=== PATIENT | male | born 1970 | race Caucasian/White ===

== ENCOUNTER → 2016-11-06 | Outpatient (REF) | payer OTHER | LOC: M SFHCPLAZ 15:12 | PROVIDERS: ATTEND Family Medicine | DX: Z11.59 Encounter for screening for other viral diseases (principal); Z11.4 Encounter for screening for human immunodeficiency virus [HIV] ==

== ENCOUNTER → 2016-12-26 | Outpatient (REF) | payer OTHER | LOC: M SFHCPLAZ 11:55 | PROVIDERS: ATTEND Family Medicine | DX: I99.8 Other disorder of circulatory system (principal) ==

== ENCOUNTER → 2017-01-18 | Outpatient (CLI) | payer OTHER ==
--- NOTE | 2017-01-18 18:59 | ECHO ---
DATE OF PROCEDURE: 01/18/2017 AGE: 46 GENDER: Male HEIGHT: 72 inches. WEIGHT: 155 pounds. BODY SURFACE AREA: 1.91 sq m. OUTPATIENT: REFERRING PHYSICIAN: Luke Mart INDICATION: Disorder of circulatory system. MEASUREMENTS: 2D MEASUREMENTS: RV - 4.2 cm LV- 4.8 cm Septum - 1.0 cm Posterior wall - 1.0 cm Aortic root - 3.9 cm LA - 4.2 cm LVEF - 65% DOPPLER MEASUREMENTS: AV - 1.0 m/s LVOT - 0.8 m/s LVOT diameter - 2.4 cm MV-E: 53 A: 47 EA ratio 1.1 Early mitral deceleration time 225 ms E-prime - 7 A-prime - 12 E/E prime ratio 7.6 PV - 0.8 m/s Pulmonary artery acceleration time 116 ms RVSP- 32 mmHg IVC - 1.6 cm COMMENTS: Normal sinus rhythm without intraventricular conduction disturbance. Borderline left atrial enlargement but normal left ventricular size. Borderline right heart chamber enlargement. Left ventricle (LV) wall thickness was normal. On real-time imaging from the parasternal and apical projections wall motion was symmetrical and normal to hyperkinetic. Normal-appearing mitral valvular apparatus and leaflet excursion with no posterior systolic buckling. Three equal size aortic cusps of normal thickness and cusp separation. Aortic root size appeared to be at least borderline increased. His ascending aorta and aortic arch and proximal descending aorta did not appear to be dilated. No apparent intracardiac mass. Minuscule posterior echo-free space. Color flow Doppler study taken from the parasternal and apical projection showed very mild tricuspid but no mitral or aortic insufficiency. Guided continuous wave Doppler of his aortic valve showed a normal peak systolic velocity against LV outflow tract obstruction. Pulsed and continuous wave Doppler of his LV inflow tract taken from the apical four-chamber projection showed normal diastolic filling velocities against mitral stenosis. The filling pattern was also normal. However, his early mitral deceleration time was somewhat prolonged and tissue Doppler of his mitral annulus also suggested a degree of LV diastolic dysfunction but current estimated mean left atrial pressure was normal. Pulsed continuous wave Doppler of his pulmonary trunk showed a normal peak systolic velocity against right ventricle (RV) outflow tract obstruction. His pulmonary artery acceleration time was normal against an elevated pulmonary vascular resistance. Guided continuous wave Doppler of his tricuspid valve allowed our estimation of his right ventricular systolic pressure (upper limits of normal to borderline increased). Normal IVC size and collapse against an elevated central venous pressure. CONCLUSION: Normal left ventricular size, wall thickness and wall motion. Borderline left atrial enlargement with Doppler evidence of a degree of impaired LV diastolic function but currently normal estimated mean left atrial pressure. Mildly dilated right heart chambers with normal contraction and only mild current pulmonary hypertension. Normal IVC size and collapse against an elevated central venous pressure. Borderline dilated aortic root with normal appearing aortic valve and function.
== END ==
LOC: M CARPUL 14:52
PROVIDERS: ATTEND Surgery
DX: I99.8 Other disorder of circulatory system (principal)

== ENCOUNTER → 2017-05-27 | Outpatient (REF) ==
--- NOTE | 2017-05-27 15:45 | REP ---
PARTIAL LUMBAR SPINE, THREE VIEWS: HISTORY: Degenerative disc disease. COMPARISON: 07/24/2012 There is no acute fracture or subluxation. The L1-2 and L3-4 through L5-S1 intervertebral discs are decreased in height. Vacuum phenomenon is present at the L4-5 and L5-S1 levels. These findings are consistent with disc degeneration. Osteophytes are present on L2-5. IMPRESSION: Degenerative change as described above. Signed by Brennen Amador MD 05/27/2017 03:55 P
--- NOTE | 2017-05-27 15:49 | REP ---
RIGHT KNEE, FIVE VIEWS: HISTORY: Degenerative joint disease. There is no acute fracture or dislocation. The joint spaces are normal in appearance. An ossified density is present in the distal femur likely representing a bone infarction. IMPRESSION: There is no acute fracture or dislocation. Signed by Brennen Amador MD 05/27/2017 03:55 P
== END ==
LOC: M SMT 14:46
PROVIDERS: ATTEND Internal Medicine
DX: Z02.9 Encounter for administrative examinations, unspecified (principal)

== ENCOUNTER → 2017-06-10 | Outpatient (REF) | payer OTHER | LOC: M SFHCPLAZ 12:39 | PROVIDERS: ATTEND Pediatrics | DX: L98.9 Disorder of the skin and subcutaneous tissue, unspecified (principal) ==

== ENCOUNTER → 2018-04-20 | Outpatient (REF) | payer OTHER | LOC: M SFHCPLAZ 15:19 | DX: I70.209 Unspecified atherosclerosis of native arteries of extremities, unspecified extremity (principal) ==

== ENCOUNTER → 2019-01-30 | Outpatient (CLI) | payer OTHER ==
[~2019-01-30] MED LIST: CLOP75TA2; ERYTOIN8 OS; LOSA50TA88; VENTAER
--- NOTE | 2019-01-30 10:43 | REP ---
Lumbar spine seven views: Comparison is 07/24/2012. The current study includes flexion and extension views in the lateral projection. There is mild scoliosis convex left, as an interval change, possibly positional. Vertebral body heights and alignment are normal and unchanged. There is degenerative disc disease at L4-5 and L5 S1, unchanged. There is no spondylolysis or spondylolisthesis. There is no listhesis on the lateral views in flexion or extension. The pedicles, facet articulations and sacroiliac articulations are unremarkable. Impression: L4-5 and L5 S1 degenerative disc disease. This is unchanged. Mild scoliosis convex left. Otherwise, negative lumbar spine. Electronically Signed by Balta Virgen MD 01/30/2019 10:34 A
== END ==
LOC: M RAD 08:27
PROVIDERS: ATTEND Student in an Organized Health Care Education/Training Program
DX: M54.40 Lumbago with sciatica, unspecified side (principal)

== ENCOUNTER → 2019-05-25 | Outpatient (REF) | payer OTHER ==
[2019-05-25 16:50] LABS: HEMATOCRIT 43.8 % (42.0-52.0); HEMOGLOBIN 14.8 g/dl (13.5-17.5); MEAN CORPUSCULAR HEMOGLOBIN 33.2 pg (27.0-33.0); MEAN CORPUSCULAR HGB CONC 33.8 g/dl (32.0-36.5); MEAN CORPUSCULAR VOLUME 98.2 fl (80.0-96.0); PLATELET COUNT, AUTOMATED 247 10^3/uL (150-450); RED BLOOD COUNT 4.46 10^6/uL (4.30-6.10); WHITE BLOOD COUNT 6.8 10^3/uL (4.0-10.0)
[2019-05-25 16:56] LABS: ALBUMIN 4.2 GM/DL (3.2-5.2); ALT/SGPT 68 U/L (12-78); BILIRUBIN,TOTAL 0.3 MG/DL (0.2-1.0); BLOOD UREA NITROGEN 6 MG/DL (7-18); CALCIUM LEVEL 9.3 MG/DL (8.5-10.1); CARBON DIOXIDE LEVEL 27 MEQ/L (21-32); CHLORIDE LEVEL 110 MEQ/L (98-107); CREATININE FOR GFR 0.83 MG/DL (0.70-1.30); GLOMERULAR FILTRATION RATE > 60.0 (>56); GLUCOSE, FASTING 109 MG/DL (70-100); MAGNESIUM LEVEL 2.5 MG/DL (1.8-2.4); SODIUM LEVEL 143 MEQ/L (136-145); TOTAL PROTEIN 7.3 GM/DL (6.4-8.2)
== END ==
LOC: M SFHCPLAZ 13:45
PROVIDERS: ATTEND Family Medicine
DX: R25.2 Cramp and spasm (principal)

== ENCOUNTER 2019-12-18 09:42 | Emergency (ER) | payer OTHER ==
[~2019-12-18] VITALS: Ht 180.3 cm; Wt 68.2 kg
[2019-12-18 09:43] VITALS: BP 140/88
[2019-12-18] MEDS ORDERED: CETI5TAB2 PO (09:50)
[2019-12-18 11:19] LABS: HEMATOCRIT 44.7 % (42.0-52.0); HEMOGLOBIN 15.2 g/dl (13.5-17.5); MEAN CORPUSCULAR HEMOGLOBIN 33.3 pg (27.0-33.0); MEAN CORPUSCULAR VOLUME 97.8 fl (80.0-96.0); PLATELET COUNT, AUTOMATED 260 10^3/uL (150-450); RED BLOOD COUNT 4.57 10^6/uL (4.30-6.10); WHITE BLOOD COUNT 7.5 10^3/uL (4.0-10.0)
== END 2019-12-18 11:29 | disposition left against medical advice (07) ==
LOC: M ED 09:42
DX: M54.12 Radiculopathy, cervical region (principal); F17.200 Nicotine dependence, unspecified, uncomplicated; J45.909 Unspecified asthma, uncomplicated; Z79.899 Other long term (current) drug therapy; Z79.02 Long term (current) use of antithrombotics/antiplatelets

== ENCOUNTER → 2019-12-25 | Outpatient (CLI) | payer OTHER ==
[~2019-12-25] MED LIST changes: +CETI5TAB2 PO; +CYCL5TAB PO; +NEUR300C PO; +PERC5TAB12 PO
--- NOTE | 2019-12-25 10:29 | REPPI ---
CERVICAL SPINE SERIES: Full cervical spine series performed including flexion, extension and oblique views. There is no compression fracture. There is fusion of C2 and C3 vertebral bodies. In the neutral position, there is mild retrolisthesis of C3 on C4 approximately 3 mm. There is also retrolisthesis of C5 on C6 about 4 mm. With flexion, the alignment is not changed although there is reduction of the retrolisthesis of C5 on C6 to about 3 mm. With extension, the retrolisthesis of C3 on C4 increases to 5 mm, there is mild retrolisthesis of C4 on C5 approximately 2 mm, and there is retrolisthesis of C5 on C6 4 mm. There is mild diffuse spurring. There is moderate disc space narrowing and subchondral sclerosis at C3-4. There is moderate narrowing and subchondral sclerosis at C5-6 and C6-7. There is diffuse sclerosis and spurring at the posterior facet joints. Oblique views show possible mild foraminal narrowing at C5-6 on the left and C6-7 on the right. IMPRESSION: Degenerative changes as discussed in detail above. Electronically Signed by Balta Jones MD 12/29/2019 06:23 P
== END ==
LOC: M PLAIMG 09:14
PROVIDERS: ATTEND Student in an Organized Health Care Education/Training Program
DX: M54.12 Radiculopathy, cervical region (principal); M50.31 Other cervical disc degeneration, high cervical region; M50.321 Other cervical disc degeneration at C4-C5 level; M50.322 Other cervical disc degeneration at C5-C6 level; M50.323 Other cervical disc degeneration at C6-C7 level

== ENCOUNTER 2019-12-31 15:49 | Emergency (ER) | payer OTHER ==
[~2019-12-31] VITALS: Ht 180.3 cm; Wt 69.6 kg
[~2019-12-31 15:49] MED LIST changes: -CYCL5TAB PO; -NEUR300C PO; -PERC5TAB12 PO
[2019-12-31] MEDS ORDERED: CYCL5TAB PO (17:29)
[2019-12-31] MEDS ORDERED: NEUR300C PO (17:29)
[2019-12-31] MEDS ORDERED: CYCLOBENZAPRINE 5MG TABLET PO ONE (17:30)
[2019-12-31] MEDS ORDERED: GABAPENTIN 300 MG CAP PO ONE (17:30)
[2019-12-31 17:37] VITALS: BP 121/69
--- NOTE | 2019-12-31 17:41 | REP ---
SHOULDER: REASON FOR EXAM: Pain and tingling. No history of trauma. No priors. FINDINGS: Three views of the shoulder were performed. The acromioclavicular and glenohumeral relationships are within normal limits. There is no acute fracture or destructive osseous lesion. There is a small cyst in the humeral head seen incidentally and unchanged from the imaged portion of the right shoulder obtained during a chest radiograph of 03/19/2012. It was also seen on chest CT of 01/16/2017. Electronically Signed by Trino Watters DO 12/31/2019 06:46 P
== END 2019-12-31 17:38 | disposition home or self-care (01) ==
LOC: M ED 15:49
DX: M54.12 Radiculopathy, cervical region (principal); F17.200 Nicotine dependence, unspecified, uncomplicated; Z79.51 Long term (current) use of inhaled steroids; Z79.899 Other long term (current) drug therapy

== ENCOUNTER 2020-01-04 11:36 | Emergency (ER) | payer OTHER ==
[~2020-01-04] VITALS: Ht 180.3 cm; Wt 68.2 kg
[~2020-01-04 11:36] MED LIST changes: +CYCL5TAB PO; +NEUR300C PO
[2020-01-04] MEDS ORDERED: ACETAMINOPHEN 500 MG TAB PO ONE (13:00)
[2020-01-04] MEDS ORDERED: ISOVUE-370 76% 100ML VIAL As Ordered ONE (13:17)
[2020-01-04 13:32] LABS: BASO # 0.1 10^3/uL (0.0-0.2); EOS # 0.2 10^3/uL (0.0-0.5); EOS % 2.5 % (0.0-3.0); HEMATOCRIT 41.7 % (42.0-52.0); HEMOGLOBIN 14.4 g/dl (13.5-17.5); LYMPH # 1.5 10^3/uL (1.5-5.0); LYMPH % 20.4 % (24.0-44.0); MEAN CORPUSCULAR HEMOGLOBIN 33.7 pg (27.0-33.0); MEAN CORPUSCULAR HGB CONC 34.5 g/dl (32.0-36.5); MEAN CORPUSCULAR VOLUME 97.7 fl (80.0-96.0); MONO # 0.6 10^3/uL (0.0-0.8); MONO % 8.8 % (0.0-5.0); NEUTROPHILS # 4.9 10^3/uL (1.5-8.5); PLATELET COUNT, AUTOMATED 226 10^3/uL (150-450); RED BLOOD COUNT 4.27 10^6/uL (4.30-6.10); WHITE BLOOD COUNT 7.3 10^3/uL (4.0-10.0)
[2020-01-04] MEDS ORDERED: PERC5TAB12 PO (15:09)
[2020-01-04 15:22] VITALS: BP 134/88
--- NOTE | 2020-01-04 16:14 | REP ---
REASON: Trauma. PRIORS: None. CONTRAST: 100 mL Isovue 370. For the description of the lung bases, please see the CT chest report. The liver, gallbladder, spleen, pancreas, adrenal glands, and kidneys are within normal limits. The abdominal aort and para-aortic regions are within normal limits. No free fluid or free air is seen in the abdomen or pelvis. The intra-abdominal and intrapelvic bowel loops and their mesenteries are within normal limits. There is no evidence of intra-abdominal or intrapelvic mass or adenopathy. Bone window technique through the examination shows a fracture involving the left 10th rib posteriorly. IMPRESSION: 1. Left 10th rib fracture. 2. No evidence of acute intra-abdominal or intrapelvic disease. Electronically Signed by Trino Watters DO 01/04/2020 04:39 P
--- NOTE | 2020-01-04 16:16 | REP ---
CT BRAIN WITHOUT IV CONTRAST: CT brain performed without IV contrast. There is mild atrophy. There is no midline shift or mass effect. Incidental note is made of a cavum septum pellucidum and cavum vergae. There is no acute intracranial hemorrhage. There is no extra-axial fluid collection. There is no evidence of a skull fracture. IMPRESSION: No evidence of acute intracranial hemorrhage or skull fracture. Electronically Signed by Balta Jones MD 01/04/2020 07:43 P
--- NOTE | 2020-01-04 16:26 | REP ---
REASON: Trauma. CONTRAST: 100 mL Isovue 370. Prior examination 02/06/2016. There is no mediastinal or hilar adenopathy. There are no pleural or pericardial effusions. Bone window technique through the examination shows a fracture of the left 10th rib posteriorly. Evaluation of the lung garcia shows a single lingular curvilinear density. IMPRESSION: Likely lingular subsegmental atelectatic change versus fibrosis. It has developed since the last CT of the chest. There are no other lung field abnormalities. There is a fracture of the left 10th rib. Electronically Signed by Trino Watters DO 01/04/2020 04:39 P
== END 2020-01-04 15:33 | disposition home or self-care (01) ==
LOC: M ED 11:36
DX: S22.32XA Fracture of one rib, left side, initial encounter for closed fracture (principal); W17.89XA Other fall from one level to another, initial encounter; W22.09XA Striking against other stationary object, initial encounter; Y92.018 Other place in single-family (private) house as the place of occurrence of the external cause; Y93.9 Activity, unspecified; F17.200 Nicotine dependence, unspecified, uncomplicated; F41.9 Anxiety disorder, unspecified; Z79.51 Long term (current) use of inhaled steroids; Z79.899 Other long term (current) drug therapy
CPT/HCPCS: 70450; 71260; 74177; 80047; 81001; 85025; 99284; Q9967

== ENCOUNTER → 2020-03-10 | Outpatient (CLI) | payer OTHER ==
[~2020-03-10] MED LIST changes: +PERC5TAB12 PO
== END ==
LOC: M LABSMTC 12:55
PROVIDERS: ATTEND Orthopaedic Surgery
DX: Z20.828 Contact with and (suspected) exposure to other viral communicable diseases (principal)
CPT/HCPCS: C9803; U0003

== ENCOUNTER → 2020-05-09 | Outpatient (CLI) | payer OTHER ==
--- NOTE | 2020-05-09 15:16 | REPPI ---
INDICATION: NEUROPATHIC PAIN. COMPARISON: January 30, 2019.. TECHNIQUE: Five routine views of the lumbar spine. FINDINGS: There is a minimal levoconvex curve in the lumbar spine unchanged. Lumbar vertebral body heights are preserved. There is slight straightening on the lateral radiograph also unchanged. There is degenerative narrowing with discogenic spurring anteriorly at L4-5 and L3-4 and to a lesser extent at L2-3 L1-2 and L5-S1. These degenerative disc changes are stable allowing for slight differences in technique when compared with the prior study. Discogenic spurring is also noted at T11-12 unchanged. There is no evidence of spondylolysis or spondylolisthesis. Pedicles and posterior elements appear intact. Psoas margins are symmetric. Sacrum and SI joints are unremarkable. IMPRESSION: Diffuse degenerative disc disease most pronounced at L4-5 and L3-4 unchanged from comparison study. No acute abnormality. <Electronically signed by Ray Christiansen > 05/09/20 [id number]
== END ==
LOC: M PLAIMG 11:10
PROVIDERS: ATTEND Student in an Organized Health Care Education/Training Program
DX: M51.36 Other intervertebral disc degeneration, lumbar region (principal)

== ENCOUNTER → 2020-05-09 | Outpatient (REF) | payer OTHER ==
[2020-05-09 14:29] LABS: ALBUMIN 4.4 GM/DL (3.2-5.2); ALT/SGPT 79 U/L (12-78); BILIRUBIN,TOTAL 0.5 MG/DL (0.2-1.0); BLOOD UREA NITROGEN 9 MG/DL (7-18); CALCIUM LEVEL 9.4 MG/DL (8.5-10.1); CARBON DIOXIDE LEVEL 25 MEQ/L (21-32); CHLORIDE LEVEL 104 MEQ/L (98-107); CREATININE FOR GFR 0.78 MG/DL (0.70-1.30); GLOMERULAR FILTRATION RATE > 60.0 (>56); GLUCOSE, FASTING 105 MG/DL (70-100); MAGNESIUM LEVEL 2.1 MG/DL (1.8-2.4); POTASSIUM SERUM 4.1 MEQ/L (3.5-5.1); SODIUM LEVEL 139 MEQ/L (136-145); TOTAL PROTEIN 7.1 GM/DL (6.4-8.2)
[2020-05-09 14:35] LABS: VITAMIN B12 LEVEL 490 PG/ML
[2020-05-09 14:36] LABS: FOLATE 4.2 NG/ML
== END ==
LOC: M SFHCPLAZ 10:50
PROVIDERS: ATTEND Internal Medicine
DX: G57.93 Unspecified mononeuropathy of bilateral lower limbs (principal)

== ENCOUNTER 2020-07-22 11:51 | Inpatient (IN) | payer OTHER ==
[~2020-07-22] VITALS: Ht 180.3 cm; Wt 65.1 kg
[~2020-07-22 11:51] MED LIST changes: -CLOP75TA2; +CLOP75TA2 PO; -VENTAER; +VENTAER INH
[2020-07-22] MEDS ORDERED: GABA-843 PO (12:04)
[2020-07-22 12:25] LABS: BASO # 0.1 10^3/uL (0.0-0.2); BASO % 0.6 % (0.0-1.0); EOS % 0.3 % (0.0-3.0); HEMATOCRIT 39.2 % (42.0-52.0); HEMOGLOBIN 13.1 g/dl (13.5-17.5); LYMPH # 0.9 10^3/uL (1.5-5.0); LYMPH % 8.8 % (24.0-44.0); MEAN CORPUSCULAR HEMOGLOBIN 32.2 pg (27.0-33.0); MEAN CORPUSCULAR HGB CONC 33.4 g/dl (32.0-36.5); MEAN CORPUSCULAR VOLUME 96.3 fl (80.0-96.0); MONO # 1.7 10^3/uL (0.0-0.8); MONO % 16.1 % (0.0-5.0); NEUTROPHILS # 7.9 10^3/uL (1.5-8.5); NEUTROPHILS % 73.5 % (36.0-66.0); PLATELET COUNT, AUTOMATED 365 10^3/uL (150-450); RED BLOOD COUNT 4.07 10^6/uL (4.30-6.10); WHITE BLOOD COUNT 10.7 10^3/uL (4.0-10.0)
[2020-07-22] MEDS ORDERED: NS 1,000 ML IV ONE (12:30)
[2020-07-22] MEDS ORDERED: METOCLOPRAMIDE INJ 10MG/2ML VIAL (J2765 PER 1) IV ONE (12:30)
--- NOTE | 2020-07-22 12:43 | REP ---
INDICATION: ? constipation COMPARISON: None. TECHNIQUE: Supine view of the abdomen and pelvis. FINDINGS: Bowel gas pattern is nonspecific and without obstruction or perforation. No significant fecal stasis. No organomegaly. No abnormal calcifications. Incidental phleboliths noted in the pelvis. Skeletal structures intact. IMPRESSION: Normal abdominal radiograph. <Electronically signed by Hakeem Chun > 07/22/20 [id number]
[2020-07-22 13:02] LABS: ALBUMIN 3.7 GM/DL (3.2-5.2); ALT/SGPT 76 U/L (12-78); BILIRUBIN,DIRECT 0.1 MG/DL (0.0-0.2); BILIRUBIN,TOTAL 0.5 MG/DL (0.2-1.0); BLOOD UREA NITROGEN 7 MG/DL (7-18); CALCIUM LEVEL 9.5 MG/DL (8.5-10.1); CARBON DIOXIDE LEVEL 27 MEQ/L (21-32); CHLORIDE LEVEL 97 MEQ/L (98-107); CREATININE FOR GFR 0.77 MG/DL (0.70-1.30); GLOMERULAR FILTRATION RATE > 60.0 (>56); GLUCOSE, FASTING 118 MG/DL (70-100); LIPASE 104 U/L (73-393); POTASSIUM SERUM 3.5 MEQ/L (3.5-5.1); SODIUM LEVEL 133 MEQ/L (136-145); TOTAL PROTEIN 6.9 GM/DL (6.4-8.2)
[2020-07-22] MEDS ORDERED: ISOVUE-370 76% 100ML VIAL As Ordered ONE (13:09)
--- NOTE | 2020-07-22 13:31 | REP ---
INDICATION: mod rlq pain into LLQ, concern for appy or diverticulitis. COMPARISON: None TECHNIQUE: Axial contrast-enhanced images from the lung bases to the pubic symphysis using 100 cc Isovue 370 intravenous contrast material. . This CT examination was performed using the following dose reduction techniques: Automated exposure control, adjustment of mA and/or kv according to the patient's size, and the use of iterative reconstruction technique. FINDINGS: There is a 6.2 x 6.1 x 4.0 cm extraluminal collection in the mid pelvis with surrounding inflammatory stranding and air-fluid level as well as small adjacent foci of gas (series 201 images 90-110). The collection is adjacent to the mid sigmoid colon which demonstrates multiple diverticula and mild mucosal thickening and this likely represents diverticular abscess with contained perforation. There is no evidence for bowel obstruction and no further significant pneumoperitoneum to suggest lourdes bowel perforation. Normal terminal ileum, cecum and appendix are identified in the right lower quadrant. Liver, spleen, pancreas, gallbladder, bilateral adrenal glands and kidneys are normal. Further evaluation of the pelvis demonstrates collapsed relatively normal bladder and mildly prominent prostate/seminal vesicles. No significant free fluid/ascites. No significant intraperitoneal or retroperitoneal adenopathy. Abdominal aorta and vasculature without aneurysm or dissection. Musculoskeletal structures demonstrate age-related changes. IMPRESSION: 1. Suspected diverticular abscess adjacent to the sigmoid colon with air-fluid level and smaller foci of peripheral gas. No associated bowel obstruction or further pneumoperitoneum to suggest lourdes perforation. <Electronically signed by Hakeem Chun > 07/22/20 [id number]
[2020-07-22] MEDS ORDERED: CIPROFLOXACIN 400 MG in IV 1 EA IV ONE (14:15)
[2020-07-22] MEDS ORDERED: HYDROMORPHONE HCL 0.5 MG/ 0.5 ML SYRINGE (J1170 PER 1) IV ONE (14:15)
[2020-07-22] MEDS ORDERED: metroNIDAZOLE 500 MG in IV 1 EA IV ONE (14:15)
[2020-07-22] MEDS ORDERED: LIDOCAINE 1% MDV 20ML VIAL As Ordered ONE (15:10)
--- NOTE | 2020-07-22 17:02 | REP ---
INDICATION: diverticular abscess. COMPARISON: None. TECHNIQUE: The procedure was performed under the direct supervision of Dr. Jones. The patient has a history of a 6.2 x 6.1 x 4.0 cm extraluminal collection in the mid pelvis seen on a previous CT scan performed earlier today. The risks and benefits of the procedure were explained to the patient and informed consent was obtained. The abscess was localized using ultrasound guidance. The skin was prepped and draped in a sterile fashion. 1% lidocaine was used as a local anesthetic. Using CT guidance an 8 [place] Skater APDL catheter was inserted using trocar technique. 40 cc of beige, proteinaceous fluid was withdrawn and sent to the lab for analysis. The abscess cavity was flushed with 4 10 cc aliquots of sterile saline. The Catheter was affixed to the skin and a sterile dressing was applied. The catheter was connected to a gravity drainage bag. The patient tolerated the procedure well and there were no immediate complications. FINDINGS: None IMPRESSION: CT-guided pelvic abscess drain yielding 40 cc of beige, proteinaceous fluid. <Electronically signed by Abhishek Pickens > 07/22/20 [id number] <Electronically signed by Balta Jones > 07/22/20 [id number]
--- NOTE | 2020-07-22 17:37 | HPEPDOC ---
[facility] Medical History & Physical Date of Admission Jul 22, 2020 Date of Service: Jul 22, 2020 Attending Physician: DAVON CHAPARRO MD History and Physical CHIEF COMPLAINT: Abdominal pain HISTORY OF PRESENT ILLNESS: 49 y.o male w/ PHM of COPD & ?Raynaud's presents with abdominal pain over the past 4 days. Pain was jani-umbilical and radiating in the lower abdomen. He denies any associated symptoms; denies N/V/D or fever. CT in the ED shows diverticular abscess, s/p IR drain placement. He was seen post-procedure and reports improvement in symptoms already and he wishes to go home. 10 point ROS is negative except for above. PAST MEDICAL HISTORY: 1. COPD PAST SURGICAL HISTORY: 1. None SOCIAL HISTORY: Current smoker, 1 pack per day. Social alcohol use. Denies drug use FAMILY HISTORY: Negative for malignancy or heart disease ALLERGIES: Please see below. HOME MEDICATIONS: Please see below. PHYSICAL EXAMINATION: VITAL SIGNS: Please see below. GENERAL: No distress HEENT: Normocephalic, atraumatic, moist mucous membranes NECK: Supple CARDIOVASCULAR EXAMINATION: S1, S2, no murmurs RESPIRATORY EXAMINATION: Clear to auscultation, no wheezing ABDOMINAL EXAMINATION: Soft, mild tenderness, abdominal drain with serosanguineous drainage EXTREMITIES: Range of motion intact SKIN: No rash NEUROLOGICAL EXAMINATION: Alert and oriented 3, no focal deficits PSYCHIATRIC EXAMINATION: Calm and cooperative LABORATORY DATA: See below. IMAGING: CT abdomen and pelvis showing diverticular abscess adjacent to the sigmoid colon. MICROBIOLOGY: Please see below. ASSESSMENT: 49-year-old male with past medical history of COPD is admitted for diverticular abscess. PLAN: 1. Diverticular abscess. Status post drain placement by IR today, cultures pending. Cipro/Flagyl, nothing by mouth, IV fluids. Gen. surgery eval pending 2. COPD DuoNeb's when necessary Active smoker, nicotine patch. DVT prophylaxis: Lovenox. GI prophylaxis: Not needed Vital Signs Vital Signs Date Time Temp Pulse Resp B/P (MAP) Pulse Ox O2 Delivery O2 Flow Rate FiO2 07/22/20 15:18 18 07/22/20 14:23 99.1 98 144/95 (111) 99 Room Air Laboratory Data Labs 24H Laboratory Tests 2 07/22/20 12:00: Immature Granulocyte % (Auto) 0.7, Neutrophils (%) (Auto) 73.5H, Lymphocytes (%) (Auto) 8.8L, Monocytes (%) (Auto) 16.1H, Eosinophils (%) (Auto) 0.3, Basophils (%) (Auto) 0.6, Neutrophils # (Auto) 7.9, Lymphocytes # (Auto) 0.9L, Monocytes # (Auto) 1.7H, Eosinophils # (Auto) 0.0, Basophils # (Auto) 0.1, Nucleated Red Blood Cells % (auto) 0.0, Anion Gap 9, Glomerular Filtration Rate > 60.0, Calcium Level 9.5, Total Bilirubin 0.5, Direct Bilirubin 0.1, Aspartate Amino Transf (AST/SGOT) 35, Alanine Aminotransferase (ALT/SGPT) 76, Alkaline Phosphatase 102, Total Protein 6.9, Albumin 3.7, Albumin/Globulin Ratio 1.2, Lipase 104 07/22/20 14:00: Urine Color YELLOW, Urine Appearance CLEAR, Urine pH 5.0, Urine Specific [place] >1.060H, Urine Protein NEGATIVE, Urine Glucose (UA) 1+H, Urine Ketones NEGATIVE, Urine Blood NEGATIVE, Urine Nitrite NEGATIVE, Urine Bilirubin NEGATIVE, Urine Urobilinogen 0.2, Urine Leukocyte Esterase NEGATIVE, Urine WBC (Auto) 1, Urine RBC (Auto) 1, Urine Hyaline Casts (Auto) 0, Urine Bacteria (Auto) NEGATIVE, Urine Squamous Epithelial Cells 0, Urine Sperm (Auto) 07/22/20 15:08: Coronavirus (COVID-19)(PCR) NEGATIVE CBC/BMP Laboratory Tests 07/22/20 12:00 Microbiology Microbiology 07/22/20 Anaerobic Culture, Received Pending 07/22/20 Gram Stain, Received Pending 07/22/20 Abscess Culture, Received Pending Home Medications Scheduled Clopidogrel Bisulfate (Clopidogrel) 75 Mg Tab, 75 MG PO DAILY Gabapentin (Gabapentin) 300 Mg Capsule, 300 MG PO BID Scheduled PRN Albuterol Sulfate (Ventolin Hfa) 108 Mcg/Act Aer, 2 PUFFS INH Q6H PRN for SOB/WHEEZING Allergies Coded Allergies: No Known Allergies (Unverified , 09/26/18) A-FIB/CHADSVASC A-FIB History Current/History of A-Fib/PAF?: No DAVON CHAPARRO MD Jul 22, 2020 16:57
[2020-07-22] MEDS ORDERED: IPRATROPIUM 0.5MG/ALBUTEROL 2.5MG INH SOL UD 3ML (DUONEB) NEB PRN (18:00)
[2020-07-22] MEDS: NS 1,000 ML IV SCH (18:15)
[2020-07-22] MEDS: ACETAMINOPHEN 500 MG TAB PO PRN (19:11)
[2020-07-22] MEDS: GABAPENTIN 300 MG CAP PO SCH (21:09)
[2020-07-22 22:35] VITALS: BP 126/85
[2020-07-23] MEDS: metroNIDAZOLE 500 MG in IV 1 EA IV SCH ×2 (03:47→12:43)
[2020-07-23] MEDS: NS 1,000 ML IV SCH ×2 (03:48→08:48)
[2020-07-23 06:00] VITALS: BP 129/85
[2020-07-23] MEDS ORDERED: CIPROFLOXACIN 400 MG in IV 1 EA IV SCH (06:00)
[2020-07-23 07:36] LABS: HEMATOCRIT 34.4 % (42.0-52.0); MEAN CORPUSCULAR HEMOGLOBIN 31.4 pg (27.0-33.0); MEAN CORPUSCULAR VOLUME 98.3 fl (80.0-96.0); PLATELET COUNT, AUTOMATED 327 10^3/uL (150-450); WHITE BLOOD COUNT 5.5 10^3/uL (4.0-10.0)
[2020-07-23 08:10] LABS: ALBUMIN 2.7 GM/DL (3.2-5.2); ALT/SGPT 48 U/L (12-78); BILIRUBIN,TOTAL 0.5 MG/DL (0.2-1.0); BLOOD UREA NITROGEN 6 MG/DL (7-18); CARBON DIOXIDE LEVEL 28 MEQ/L (21-32); CHLORIDE LEVEL 103 MEQ/L (98-107); CREATININE FOR GFR 0.68 MG/DL (0.70-1.30); GLOMERULAR FILTRATION RATE > 60.0 (>56); GLUCOSE, FASTING 97 MG/DL (70-100); MAGNESIUM LEVEL 1.9 MG/DL (1.8-2.4); POTASSIUM SERUM 3.5 MEQ/L (3.5-5.1); SODIUM LEVEL 137 MEQ/L (136-145); TOTAL PROTEIN 5.4 GM/DL (6.4-8.2)
[2020-07-23] MEDS ORDERED: ENOXAPARIN 40MG/0.4ML SYRINGE (J1650 PER 10MG) SC SCH (09:00)
[2020-07-23] MEDS ORDERED: CLOPIDOGREL 75 MG TAB PO SCH (09:00)
[2020-07-23] MEDS ORDERED: NICOTINE 21MG/24HR 1 EA TRANSDERMAL TD SCH (09:00)
[2020-07-23] MEDS: GABAPENTIN 300 MG CAP PO SCH (09:13)
[2020-07-23] MEDS: ACETAMINOPHEN 500 MG TAB PO PRN (09:15)
[2020-07-23] MEDS ORDERED: POTASSIUM CHLORIDE 10 MEQ SR TABLET PO ONE (09:45)
[2020-07-23] MEDS ORDERED: CIPR500T3 PO (12:19)
[2020-07-23] MEDS ORDERED: FLAG500T PO (12:19)
--- NOTE | 2020-07-23 18:03 | DS.PDOC ---
Discharge Summary General Date of Admission Jul 22, 2020 at 16:35 Date of Discharge 07/23/2020 Attending Physician: DAVON CHAPARRO MD Discharge Summary PROCEDURES PERFORMED DURING STAY: None. ADMITTING DIAGNOSES: 1. Diverticular abscess. DISCHARGE DIAGNOSES: 1. Diverticular abscess. COMPLICATIONS/CHIEF COMPLAINT: Abdominal Pain. HISTORY OF PRESENT ILLNESS: 49-year-old male was admitted for diverticular abscess. He underwent IR drain placement with significant improvement in s ymptoms. He has been tolerating his diet since drain placement. He is seen in the morning, comfortable, without complaints, wishing to go home. He was invited by general surgery who are okay with discharge and outpatient follow-up in 1 week for drain removal and further management. Patient will be discharged on oral antibiotics. Patient is agreeable with discharge plan. HOSPITAL COURSE: As above. DISCHARGE MEDICATIONS: Please see below. ALLERGIES: Please see below. PHYSICAL EXAMINATION: VITAL SIGNS: Please see below. GENERAL: No distress HEENT: Normocephalic, atraumatic, moist mucous membranes NECK: Supple CARDIOVASCULAR EXAMINATION: S1, S2, no murmurs RESPIRATORY EXAMINATION: Clear to auscultation, no wheezing ABDOMINAL EXAMINATION: Soft, mild tenderness, abdominal drain with minimal output, positive bowel sounds EXTREMITIES: Range of motion intact SKIN: No rash NEUROLOGICAL EXAMINATION: Alert and oriented 3, no focal deficits PSYCHIATRIC EXAMINATION: Calm and cooperative LABORATORY DATA: Please see below. IMAGING: CT abdomen and pelvis consistent with diverticular abscess PROGNOSIS: Fair ACTIVITY: As tolerated. DIET: Regular DISCHARGE PLAN: Follow-up with general surgery and PCP in 1-2 weeks DISPOSITION: Home DISCHARGE INSTRUCTIONS: 1. As above. DISCHARGE CONDITION: Stable. TIME SPENT ON DISCHARGE: Greater than 20 minutes. Vital Signs/I&Os Vital Signs Date Time Temp Pulse Resp B/P (MAP) Pulse Ox O2 Delivery O2 Flow Rate FiO2 07/23/20 06:00 98.8 84 16 129/85 (100) 99 Room Air I&O- Last 24 Hours up to 6 AM 07/23/20 06:00 Intake Total 2725 ml Output Total 30 ml Balance 2695 ml Laboratory Data Labs 24H Laboratory Tests 2 07/23/20 07:23: Nucleated Red Blood Cells % (auto) 0.0, Anion Gap 6L, Glomerular Filtration Rate > 60.0, Calcium Level 8.0#L, Magnesium Level 1.9, Total Bilirubin 0.5, Aspartate Amino Transf (AST/SGOT) 18, Alanine Aminotransferase (ALT/SGPT) 48, Alkaline Phosphatase 79, Total Protein 5.4#L, Albumin 2.7#L, Albumin/Globulin Ratio 1.0 CBC/BMP Laboratory Tests 07/23/20 07:23 Microbiology Microbiology 07/22/20 Anaerobic Culture, Received Pending 07/22/20 Gram Stain - Final, Resulted 07/22/20 Abscess Culture, Resulted Pending Discharge Medications Scheduled Ciprofloxacin HCl (Ciprofloxacin HCl) 500 Mg Tablet, 1 TAB PO BID Clopidogrel Bisulfate (Clopidogrel) 75 Mg Tab, 75 MG PO DAILY, (Reported) Gabapentin (Gabapentin) 300 Mg Capsule, 300 MG PO BID, (Reported) Metronidazole (Flagyl) 500 Mg Tablet, 500 MG PO Q8H FOR 10 DAYS Scheduled PRN Albuterol Sulfate (Ventolin Hfa) 108 Mcg/Act Aer, 2 PUFFS INH Q6H PRN for SOB/WHEEZING, (Reported) Allergies Coded Allergies: No Known Allergies (Unverified , 09/26/18) DAVON CHAPARRO MD Jul 23, 2020 18:03
== END 2020-07-23 15:10 | disposition home or self-care (01) | DRG 244 ==
LOC: M ED 11:51 → M ED INP 16:35 → M MSPAV 22:35
PROVIDERS: ADMIT Internal Medicine; ATTEND Internal Medicine
PROC: 0W9J30Z Drainage of Pelvic Cavity with Drainage Device, Percutaneous Approach (ICD-10-PCS; principal; 2020-07-22 15:00)
DX: K57.80 Diverticulitis of intestine, part unspecified, with perforation and abscess without bleeding (principal); J44.9 Chronic obstructive pulmonary disease, unspecified; Z79.899 Other long term (current) drug therapy; F17.200 Nicotine dependence, unspecified, uncomplicated

== ENCOUNTER → 2020-09-16 | Outpatient (CLI) | payer OTHER ==
[~2020-09-16] MED LIST changes: +CIPR500T3 PO; +FLAG500T PO; +GABA-282 PO
== END ==
LOC: M LABSMTC 10:48
PROVIDERS: ATTEND Anesthesiology
DX: Z01.812 Encounter for preprocedural laboratory examination (principal); Z20.822 Contact with and (suspected) exposure to COVID-19

== ENCOUNTER 2020-09-21 08:53 | Day surgery (SDC) | payer OTHER ==
[~2020-09-21] VITALS: Ht 180.3 cm; Wt 64.9 kg
[~2020-09-21 08:53] MED LIST changes: +LIDOCAINE 2% 100MG/5ML SDV (FOR ANES.) As Ordered ONE; +NS 1,000 ML IV ONE; +propofoL 200 MG/20 ML VIAL As Ordered ONE
[2020-09-21] MEDS ORDERED: PHENYLephrine 500MCG 5ML (100MCG/ML) SYRINGE As Ordered ONE (09:38)
[2020-09-21] MEDS ORDERED: MIDAZOLAM INJ 2MG/2ML VIAL (J2250 PER 1MG) As Ordered ONE (09:47)
[2020-09-21] MEDS ORDERED: propofoL 200 MG/20 ML VIAL As Ordered ONE ×3 (09:49→10:11)
[2020-09-21] MEDS ORDERED: METOPROLOL 5 MG/5 ML VIAL As Ordered ONE (09:54)
[2020-09-21] MEDS ORDERED: ELEVIEW SUBMUCOSAL INJ 10ML AMP As Ordered ONE (10:02)
--- NOTE | 2020-09-21 10:31 | ROOR ---
Patient Name: Douglas Austin Procedure Date: 09/21/2020 9:28 AM Date of : 1970 Age: 49 Room: [facility] Gender: Male Note Status: Finalized Procedure: Colonoscopy Indications: Abnormal CT of the GI tract, Follow-up of diverticulitis Providers: Danyel James MD Referring MD: Ronak José Do Requesting Provider: Medicines: Monitored Anesthesia Care Complications: No immediate complications. Procedure: Pre-Anesthesia Assessment: - Prior to the procedure, a History and Physical was performed, and patient medications and allergies were reviewed. The patient is competent. The risks and benefits of the procedure and the sedation options and risks were discussed with the patient. All questions were answered and informed consent was obtained. Patient identification and proposed procedure were verified by the physician, the nurse and the automotive sales professional in the endoscopy suite. Mental Status Examination: alert and oriented. Airway Examination: normal oropharyngeal airway and neck mobility. Respiratory Examination: clear to auscultation. CV Examination: normal. Prophylactic Antibiotics: The patient does not require prophylactic antibiotics. Prior Anticoagulants: The patient has taken Plavix (clopidogrel), last dose was 5 days prior to procedure. ASA Grade Assessment: III - A patient with severe systemic disease. After reviewing the risks and benefits, the patient was deemed in satisfactory condition to undergo the procedure. The anesthesia plan was to use monitored anesthesia care (MAC). Immediately prior to administration of medications, the patient was re-assessed for adequacy to receive sedatives. The heart rate, respiratory rate, oxygen saturations, blood pressure, adequacy of pulmonary ventilation, and response to care were monitored throughout the procedure. The physical status of the patient was re-assessed after the procedure. The Colonoscope was introduced through the anus and advanced to the cecum, identified by appendiceal orifice and ileocecal valve. The colonoscopy was technically difficult and complex due to multiple diverticula in the colon, associated chronic diverticulitis, narrowing of the lumen and the patient's anxiety. [Solution]. The quality of the bowel preparation was good. Findings: Hemorrhoids were found on perianal exam. A few medium-mouthed diverticula were found in the sigmoid colon. Bridgette-diverticular erythema was seen. A 15 mm polyp was found in the ascending colon. The polyp was sessile. The polyp was removed with a hot snare. The polyp was removed with a saline injection-lift technique using a hot snare. The polyp was removed with a piecemeal technique using a hot snare. Resection and retrieval were complete. To close a defect after polypectomy, three hemostatic clips were successfully placed (MR conditional). There was no bleeding during the procedure. No additional abnormalities were found on retroflexion. Impression: - Hemorrhoids found on perianal exam. - Mild diverticulosis in the sigmoid colon. Bridgette-diverticular erythema was seen. - One 15 mm polyp in the ascending colon, removed with a hot snare, removed using injection-lift and a hot snare and removed piecemeal using a hot snare. Resected and retrieved. Clips (MR conditional) were placed. Recommendation: - Discharge patient to home (ambulatory). - Soft diet for 2 weeks. - Use original regular Metamucil one teaspoon PO BID for 6 weeks. Procedure Code(s): --- Professional --- 01539, Colonoscopy, flexible; with removal of tumor(s), polyp(s), or other lesion(s) by snare technique 61745, Colonoscopy, flexible; with directed submucosal injection(s), any substance Diagnosis Code(s): --- Professional --- K64.9, Unspecified hemorrhoids K63.5, Polyp of colon K57.32, Diverticulitis of large intestine without perforation or abscess without bleeding K57.30, Diverticulosis of large intestine without perforation or abscess without bleeding R93.3, Abnormal findings on diagnostic imaging of other parts of digestive tract CPT copyright 2019 [employer]. All rights reserved. The codes documented in this report are preliminary and upon refinisher review may be revised to meet current compliance requirements. Danyel James MD Danyel James MD 09/21/2020 10:32:01 AM Electronically signed by Danyel James MD Number of Addenda: 0 Note Initiated On: 09/21/2020 9:28 AM Estimated Blood Loss: Estimated blood loss: none.
[2020-09-21 11:00] VITALS: BP 148/83
== END 2020-09-21 11:07 | disposition home or self-care (01) ==
LOC: M OPP 08:53
PROVIDERS: ATTEND Surgery
DX: D12.2 Benign neoplasm of ascending colon (principal); K57.30 Diverticulosis of large intestine without perforation or abscess without bleeding; K64.8 Other hemorrhoids; K57.32 Diverticulitis of large intestine without perforation or abscess without bleeding; R93.3 Abnormal findings on diagnostic imaging of other parts of digestive tract; J44.9 Chronic obstructive pulmonary disease, unspecified; Z79.899 Other long term (current) drug therapy; F17.210 Nicotine dependence, cigarettes, uncomplicated
CPT/HCPCS: 45381; 45385; 88305; J2250; J2370

== ENCOUNTER → 2020-11-28 | Outpatient (CLI) | payer MEDICAID ==
[~2020-11-28] MED LIST changes: -LIDOCAINE 2% 100MG/5ML SDV (FOR ANES.) As Ordered ONE; -NS 1,000 ML IV ONE; -propofoL 200 MG/20 ML VIAL As Ordered ONE
== END ==
LOC: M OUTALCOH 08:16
PROVIDERS: ATTEND Psychiatry & Neurology Psychiatry
DX: F10.10 Alcohol abuse, uncomplicated (principal)

== ENCOUNTER 2020-12-06 15:20 | Outpatient (RCR) | payer MEDICAID | END 2020-12-12 | LOC: M OUTALCOH 15:20 | PROVIDERS: ATTEND Psychiatry & Neurology Psychiatry | DX: F10.10 Alcohol abuse, uncomplicated (principal); F17.200 Nicotine dependence, unspecified, uncomplicated; F12.10 Cannabis abuse, uncomplicated ==

== ENCOUNTER → 2021-01-03 | Outpatient (REF) | payer OTHER ==
[2021-01-03 15:39] LABS: BASO # 0.1 10^3/uL (0.0-0.2); BASO % 0.8 % (0.0-1.0); EOS # 0.1 10^3/uL (0.0-0.5); EOS % 0.9 % (0.0-3.0); HEMATOCRIT 46.1 % (42.0-52.0); HEMOGLOBIN 15.5 g/dl (13.5-17.5); LYMPH # 1.6 10^3/uL (1.5-5.0); LYMPH % 14.1 % (24.0-44.0); MEAN CORPUSCULAR HEMOGLOBIN 33.5 pg (27.0-33.0); MEAN CORPUSCULAR HGB CONC 33.6 g/dl (32.0-36.5); MEAN CORPUSCULAR VOLUME 99.8 fl (80.0-96.0); MONO % 9.1 % (2.0-8.0); NEUTROPHILS # 8.5 10^3/uL (1.5-8.5); NEUTROPHILS % 74.7 % (36.0-66.0); PLATELET COUNT, AUTOMATED 248 10^3/uL (150-450); RED BLOOD COUNT 4.62 10^6/uL (4.30-6.10); WHITE BLOOD COUNT 11.3 10^3/uL (4.0-10.0)
[2021-01-03 16:15] LABS: ALBUMIN 4.2 GM/DL (3.2-5.2); ALT/SGPT 30 U/L (12-78); BILIRUBIN,TOTAL 0.4 MG/DL (0.2-1.0); BLOOD UREA NITROGEN 6 MG/DL (7-18); CALCIUM LEVEL 8.8 MG/DL (8.5-10.1); CARBON DIOXIDE LEVEL 28 MEQ/L (21-32); CHLORIDE LEVEL 103 MEQ/L (98-107); CHOLESTEROL LEVEL 220 MG/DL (<200); CHOLESTEROL RISK RATIO 2.315 (<5); CREATININE FOR GFR 0.74 MG/DL (0.70-1.30); GLOMERULAR FILTRATION RATE > 60.0 (>56); GLUCOSE, FASTING 103 MG/DL (70-100); HDL CHOLESTEROL 95 MG/DL (>40); LDL CHOLESTEROL 106 MG/DL (<100); NON-HDL-C 125 MG/DL; POTASSIUM SERUM 3.7 MEQ/L (3.5-5.1); SODIUM LEVEL 140 MEQ/L (136-145); THYROID STIMULATING HORMONE 0.366 uIU/ML (0.358-3.740); TOTAL PROTEIN 7.2 GM/DL (6.4-8.2); TRIGLYCERIDES LEVEL 95 MG/DL (<150)
== END ==
LOC: M SFHCPLAZ 13:17
PROVIDERS: ATTEND Family Medicine
DX: F10.10 Alcohol abuse, uncomplicated (principal); Z13.220 Encounter for screening for lipoid disorders; F32.1 Major depressive disorder, single episode, moderate

== ENCOUNTER 2021-03-02 13:28 | Emergency (ER) | payer OTHER ==
[~2021-03-02] VITALS: Ht 180.3 cm; Wt 68.2 kg
[2021-03-02 14:08] LABS: BASO # 0.1 10^3/uL (0.0-0.2); BASO % 0.8 % (0.0-1.0); EOS # 0.1 10^3/uL (0.0-0.5); EOS % 0.7 % (0.0-3.0); HEMATOCRIT 43.6 % (42.0-52.0); HEMOGLOBIN 14.8 g/dl (13.5-17.5); LYMPH # 1.5 10^3/uL (1.5-5.0); LYMPH % 13.6 % (24.0-44.0); MEAN CORPUSCULAR HEMOGLOBIN 33.9 pg (27.0-33.0); MEAN CORPUSCULAR HGB CONC 33.9 g/dl (32.0-36.5); MEAN CORPUSCULAR VOLUME 99.8 fl (80.0-96.0); MONO # 0.9 10^3/uL (0.0-0.8); MONO % 8.2 % (2.0-8.0); NEUTROPHILS # 8.5 10^3/uL (1.5-8.5); NEUTROPHILS % 76.3 % (36.0-66.0); PLATELET COUNT, AUTOMATED 218 10^3/uL (150-450); RED BLOOD COUNT 4.37 10^6/uL (4.30-6.10); WHITE BLOOD COUNT 11.1 10^3/uL (4.0-10.0)
--- NOTE | 2021-03-02 14:10 | REP ---
INDICATION: CHEST PAIN. COMPARISON: 12/08/2013. TECHNIQUE: Single portable AP view of the chest was performed. FINDINGS: There is no acute infiltrate or pulmonary edema. Lungs are clear. The heart is not significantly enlarged. The mediastinal silhouette is unremarkable. The visualized osseous structures are intact. IMPRESSION: No acute pulmonary disease. <Electronically signed by Balta Jones > 03/02/21 [id number]
[2021-03-02] MEDS ORDERED: ISOVUE-370 76% 100ML VIAL As Ordered ONE (14:19)
[2021-03-02 14:34] LABS: CK-MB VALUE MASS < 1.0 NG/ML (<3.6); CPK CREATINE PHOSPHOKINASE 109 U/L (39-308); MB/CK RELATIVE INDEX 0.92 (< OR =4); NT-PRO BNP 110 PG/ML (<125); TROPONIN I < 0.02 NG/ML (< 0.10)
--- NOTE | 2021-03-02 14:57 | REP ---
INDICATION: R/O PE COMPARISON: Multiple the latest 01/04/2020 standard contrast-enhanced chest CT TECHNIQUE: CT angiography of the chest after the intravenous administration of 75 cc Isovue 370. Attention pulmonary arteries. FINDINGS: There is excellent visualization of the pulmonary arterial vasculature. No focal filling defects are present that would be considered consistent with acute pulmonary emboli. There is no mediastinal or hilar adenopathy. There are no pleural or pericardial effusions. The thoracic aorta is within normal limits and unchanged from the prior exam. The osseous structures are intact. The previously described left 10th rib fracture has healed. Evaluation of the lung garcia shows no abnormal nodules, masses, or opacities. The lingular curvilinear density seen previously has resolved. IMPRESSION: CT findings are within normal limits. There is no acute disease. <Electronically signed by Trino Watters > 03/02/21 [id number]
[2021-03-02] MEDS ORDERED: MORPHINE 2 MG/ML 1ML VIAL (J2270) IV ONE (16:55)
[2021-03-02 18:07] LABS: CK-MB VALUE MASS < 1.0 NG/ML (<3.6); TROPONIN I < 0.02 NG/ML (< 0.10)
[2021-03-02 18:17] LABS: CPK CREATINE PHOSPHOKINASE 155 U/L (39-308); MB/CK RELATIVE INDEX 0.64 (< OR =4)
[2021-03-02 18:45] VITALS: BP 149/101
--- NOTE | 2021-03-03 10:13 | ECGEPIP ---
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
--- NOTE | 2021-03-03 10:14 | ECGEPIP ---
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
== END 2021-03-02 19:02 | disposition home or self-care (01) ==
LOC: EDBD 13:28 → M ED 13:28
DX: R07.89 Other chest pain (principal); T50.B95A Adverse effect of other viral vaccines, initial encounter; F17.200 Nicotine dependence, unspecified, uncomplicated; Z79.899 Other long term (current) drug therapy
CPT/HCPCS: 71045; 71275; 80047; 82550; 82553; 83880; 85025; 87798; 93005; 93041; 94760; 96374; 99285; J2270; Q9967

== ENCOUNTER → 2021-03-27 | Outpatient (CLI) | payer OTHER | LOC: M LABSMTC 10:38 | PROVIDERS: ATTEND Pediatrics | DX: Z20.822 Contact with and (suspected) exposure to COVID-19 (principal) ==

== ENCOUNTER → 2021-05-30 | Outpatient (CLI) | payer OTHER ==
--- NOTE | 2021-05-30 18:02 | REPVR ---
PROCEDURE INFORMATION: Exam: MR Lumbar Spine Without Contrast Exam date and time: 05/30/2021 2:41 PM Age: 50 years old Clinical indication: Low back pain; Additional info: Sciatica pain TECHNIQUE: Imaging protocol: Multiplanar magnetic resonance images of the lumbar spine without intravenous contrast. COMPARISON: CR SPINE LS COMPLETE 05/09/2020 11:33 AM FINDINGS: Vertebral body heights are maintained. Multilevel Modic type 1 edematous degenerative endplate change. No cord compression. No abnormal cord signal. Conus medullaris terminates at the L1 level. Paravertebral soft tissues are unremarkable. L1-L2: Slight broad-based disc bulge without significant canal narrowing. Mild bilateral foraminal narrowing. L2-L3: Right paracentral disc protrusion superimposed over broad-based disc bulge effacing the right lateral recess with slight impingement upon the traversing right L3 nerve root. Moderate to severe right foraminal narrowing with impingement upon the exiting right L2 nerve root. L3-L4: Broad-based disc bulge and facet hypertrophy cause mild canal narrowing and [id number] bilateral foraminal narrowing. L4-L5: Central disc protrusion and facet hypertrophy causing mild canal narrowing and mild bilateral foraminal narrowing. L5-S1: Broad-based disc bulge and facet hypertrophy cause mild canal narrowing and [id number]-[id number] bilateral foraminal narrowing. IMPRESSION: Multilevel spondylotic changes of the lumbar spine, including spondylotic related impingement of both the exiting right L2 and traversing right L3 nerve roots at the L2-L3 level, as detailed above. Electronically signed by: Howard Lopez On 05/30/2021 18:01:49 PM
== END ==
LOC: M PLAIMG 13:35
PROVIDERS: ATTEND Family Medicine
DX: M54.40 Lumbago with sciatica, unspecified side (principal)

== ENCOUNTER 2021-06-05 01:55 | Emergency (ER) | payer OTHER ==
[2021-06-05 02:12] VITALS: BP 136/89
[2021-06-05 03:14] LABS: BASO # 0.1 10^3/uL (0.0-0.2); BASO % 0.9 % (0.0-1.0); EOS # 0.1 10^3/uL (0.0-0.5); EOS % 1.3 % (0.0-3.0); HEMATOCRIT 42.6 % (42.0-52.0); HEMOGLOBIN 14.4 g/dl (13.5-17.5); LYMPH # 1.8 10^3/uL (1.5-5.0); LYMPH % 20.7 % (24.0-44.0); MEAN CORPUSCULAR HEMOGLOBIN 34.2 pg (27.0-33.0); MEAN CORPUSCULAR HGB CONC 33.8 g/dl (32.0-36.5); MEAN CORPUSCULAR VOLUME 101.2 fl (80.0-96.0); MONO # 0.6 10^3/uL (0.0-0.8); NEUTROPHILS % 69.9 % (36.0-66.0); PLATELET COUNT, AUTOMATED 293 10^3/uL (150-450); RED BLOOD COUNT 4.21 10^6/uL (4.30-6.10); WHITE BLOOD COUNT 8.6 10^3/uL (4.0-10.0)
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
--- OUTSIDE RECORDS SUMMARY | 2021-06-05 03:35 | CCD ---
Author Author [facility] Organization 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 Active confirmed 641861420 Problem Back pain of lumbar region with sciatica M54.40 Active confirmed 618079354 Problem Cigarette nicotine dependence without complication F17.210 Active confirmed 10399133 Problem Insomnia, unspecified type G47.00 Active confirmed 858079435 Problem Nicotine dependence with current use F17.200 Act radha confirmed 885336458 Problem Allergic rhinitis, unspecified seasonality, unspecifie d trigger J30.9 Active confirmed 50364406 Problem Non-seasonal allergic rhinitis, unspecified trigger J30.89 Active confirmed 07551498 Problem Neuropathic pain, leg, bilateral G57.93 Active conf irmed 29093295 Problem Current moderate episode of major depressive disorder without prior episode F32.1 Active confirmed 15024735 Problem Anxiety F41.9 Active confirmed 08363987 Problem Alcohol abuse F10.10 Active confirmed 280016 05 Problem COPD (chronic obstructive pulmonary disease) wit h chronic bronchitis J44.9 Active confirmed 366732592 Problem Carpal tunnel syndrome of right wrist G56.01 Ac tive confirmed 020976155346221 Problem Cigarette nicotine dependence with other nicotin e-induced disorder F17.218 Active confirmed 92574320 Problem Colonic diverticular abscess K57.20 Active confirme d 227569779 Problem Thromboangiitis obliterans I73.1 Active confirmed 25355006 ALLERGIES No Known Allergies ENCOUNTERS from 1970 to 2021-03-08 Encounter Location Date Provider Diagnosis [facility] [place] Resident [phone] [place] [address] 12 Jan, 2021 Brando Barkin Back pain of lumbar region with sciatica M54.40 ; COPD (chronic obstructive pulmonary disease) with chronic bronchitis J44.9 ; Current moderate episode of major depressive disorder without prior episode F32.1 and Neuropathic pain, leg, bilateral G57.93 IMMUNIZATIONS Vaccine Route Administration Date Status Influenza 6mo & up Fluzone Unknown Apr 16, 2017 Other s SOCIAL HISTORY Tobacco Use: Social History Observation Description Date Details (start date - stop date) Current Smoker Sex Assigned At : Social History Observation Description Sex Assigned At Unknown Education: Question Answer Notes Level of Education: Not finished High School 9 Audit Question Answer Notes Total Score: 1 Interpretation: Alcohol Education Language: Question Answer Notes Languages spoken: New Zealander Jain: Question Answer Notes Jain 33 None Sexual Hx: Question Answer Notes Had sex in the last 12 months (vaginal, oral, or anal)? Yes LMP: - Have you ever had an STD? No with Women only Use protection? No Drug and Alcohol Question Answer Notes Total Score: 0 Interpretation: No problems reported Alcohol Screening: Question Answer Notes Did you have a drink containing alcohol in the past year? Ye s Points 4 Interpretation Positive How often did you have six or more drinks on one occas ion in the past year? Less than monthly (1 point) How many drinks did you have on a typica l day when you were drinking in the past year? 1 or 2 (0 points) How often did you have a drink containing alcohol in t he past year? Two to three times per week (3 points) Tobacco Use: Question Answer Notes Are you a: current smoker Patient counseled on the dangers of tobacco use and urged to quit: 06/03/2019 How many cigarettes a day do you smoke? 06-03 Are you interested in quitting? Not ready to quit Counseled the patient on smoking effects, education provided 06/03/2019 REASON FOR REFERRAL from 1970 to 2021-03-08 Reason intra-articular steroid inje ctions for back pain Diagnosis 1 Back pain of lumbar region w ith sciatica (M54.40) Referral Organization [facility] Resident Referring Provider First Name Brando Referring Provider Last Name Jeremias Referring Provider Specialty Family Medicine Referred Organization [facility] Referred Provider Bib Oliver Referred Address [address] [facility] [facility],[phone],[place], [place],[address] Referred Provider Specialty Pain Medicine Referral Priority Routine Referral Appointment Date 2021-04-19 General Notes Silvana Reyes 02/10/2021 9: 53:11 AM > Faxed and sent [id number] Rosales 02/14/2021 1:18:02 PM > pt is aware VITAL SIGNS Weight 145.6 lbs Jan, Height 71 in Jan, BMI 20.30 kg/m2 Jan, Heart Rate 98 /min Jan, Respiratory Rate 18 /min Jan, Temperature 97.1 degrees Fahrenheit Jan, Oximetry 97 Jan, Blood pressure systolic 110 mm Hg Jan, Blood pressure diastolic 70 mm Hg Jan, MEDICATIONS Medication SIG (Take, Route, Frequency, Duration) Notes Start Da te End Date Status DULoxetine HCl 30 MG 1 capsule Orally Once a day for 30 day(s) Jan, Active Gabapentin 300 MG 1 capsule Orally TID for 30 days Active Methocarbamol 500 MG 1 tablet Orally every 8 hrs for 30 day(s) Jan, Active Ventolin HFA 108 (90 Base) MCG/ACT 2 puffs as needed I nhalation every 4 hrs for 30 days Active Plavix 75 MG 1 tablet Orally Once a day for 90 day(s) Not taking pe r surgeon Not-Taking PROCEDURES No Information RESULTS No Results REASON FOR VISIT 3w follow ok per asha MEDICAL (GENERAL) HISTORY Type Description Date Medical History Right fibula fracture, Left leg fracture Medical History Depression and Anxiety secondary to loss of son in 2010 Medical History ADHD Medical History ASCVD 10 YR RISK: 2.1% Medical History Cigarette nicotine dependenc e with other nicotine-induced disorder Medical History Ischemia of digits of hand Medical History Smoking Medical History Thromboangitis Obliterans Surgical History Pins and rods placed in left leg 1999 Surgical History Right hand surgery 2008 Surgical History Vasectomy 1989 Surgical History diverticulitis 07/2020 Goals Section No Information Health Concerns No Information MEDICAL EQUIPMENT No Information MENTAL STATUS No Information FUNCTIONAL STATUS No Information ASSESSMENTS Encounter Date Diagnosis Assessment Notes Treatment Notes Treatm ent Clinical Notes Jan, Back pain of lumbar region with sciatica (ICD-10 - M54.40) Will refer to Dr. Oliver at the pain clinic for consideration of steroid injections, he has been seen by PT in the past and feels like it didn't help at all, he has never been evaluated by an orthopedic surgeon or had a lumbar MRI, may consider that in the future, lumbar XR showing diffuse DDD. Will prescibe muscle relaxer in the interim and increase his gabapentin dose, see neuropathic pain section. Patient given instructions regarding cautious and appropriate use of these medications and not to operate heavy machinery while taking them. Patient verbalized understanding and agreement with plan moving forward. Jan, COPD (chronic obstructive pu lmonary disease) with chronic bronchitis (ICD-10 - J44.9) Takes 2 puffs in the morning, I'm fine refilling this, but we may consider low dose ICS in the future and using his ventolin as a rescue inhaler rather than a maintenance therapy. Patient in agreement with plan moving forward. Jan, Current moderate episode of major depressive disorder without prior episode (ICD-10 - F32.1) Will stop his lexapro and start him on cymbalta given his chronic pain, given anticipatory guidance regarding side effects and to seek ED attention in the event he experienced SI or HI. Was further advised this medication can take up to 4-6 weeks to take full effect. Patient verbalized understanding and agreement with plan moving forward. Jan, Neuropathic pain, leg, bilateral (ICD-10 - G57.9 3) He has been taking 2 in the morning and 2 in the evening. Advised him to take meds as prescribed, increasing gabapentin to tid dosing, his symptoms do not seem especially neuropathic in origin, but they have been in the past per his report. However on physical exam he does not complain of neuropathic symptoms, they seem localized to his low back. Patient in agreement with plan moving forward. PLAN OF TREATMENT Medication Medication Name Sig Start Date Stop Date DULoxetine HCl 30 MG 1 capsule Orally Once a day for 30 day(s) 1 2 Jan, 2021 Ventolin HFA 108 (90 Base) MCG/ACT 2 puffs as needed I nhalation every 4 hrs for 30 days Gabapentin 300 MG 1 capsule Orally TID for 30 days Methocarbamol 500 MG 1 tablet Orally every 8 hrs for 30 day(s) 1 Jan, Treatment Notes Assessment Notes Clinical Notes Back pain of lumbar region with sciatica Will refer to Dr. Oliver at the pain clinic for consideration of steroid injections, he has been seen by PT in the past and feels like it didn't help at all, he has never been evaluated by an orthopedic surgeon or had a lumbar MRI, may consider that in the future, lumbar XR showing diffuse DDD. Will prescibe muscle relaxer in the interim and increase his gabapentin dose, see neuropathic pain section. Patient given instructions regarding cautious and appropriate use of these medications and not to operate heavy machinery while taking them. Patient verbalized understanding and agreement with plan moving forward. COPD (chronic obstructive pulmonary disease) with chronic br onchitis Takes 2 puffs in the morning, I'm fine refilling this, but we may consider low dose ICS in the future and using his ventolin as a rescue inhaler rather than a maintenance therapy. Patient in agreement with plan moving forward. Current moderate episode of major depressive disorder withou t prior episode Will stop his lexapro and start him on cymbalta given his chronic pain, given anticipatory guidance regarding side effects and to seek ED attention in the event he experienced SI or HI. Was further advised this medication can take up to 4-6 weeks to take full effect. Patient verbalized understanding and agreement with plan moving forward. Neuropathic pain, leg, bilateral He has been taking 2 in the morning and 2 in the evening. Advised him to take meds as prescribed, increasing gabapentin to tid dosing, his symptoms do not seem especially neuropathic in origin, but they have been in the past per his report. However on physical exam he does not complain of neuropathic symptoms, they seem localized to his low back. Patient in agreement with plan moving forward. Referrals Referral Date Details 2021-04-19 2021-04-19, intra-articular steroid injections for back pain, Bib Oliver, [address], [place], [address], Next Appt Details 6 Weeks Reason:f/u back pain Provider Name:Bib Oliver, 2021-04-19 08:30:00 AM, [address], , [place], [address], Follow Up:6 Weeksf/u back pain Insurance Providers Payer Name Payer Address Payer Phone Insured Name Patient Relati onship to Insured Coverage Start Date Coverage End Date [facility] [employer] [employer] [facility] [address] [facility] [address] [phone] DANY CHAO [id number]
--- OUTSIDE RECORDS SUMMARY | 2021-06-05 03:35 | CCD ---
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 Active confirmed 903687597 Problem Erectile dysfunction, unspecified erectile dysfunction typ e N52.9 Active confirmed 314771407 Problem Cigarette nicotine dependence without complication F17.210 Active confirmed 20549168 Problem Injury of right hand, sequela S69.91XS Active c onfirmed 06108862427835414 Problem Nicotine dependence with current use F17.200 Act radha confirmed 791738894 Problem Back pain of lumbar region with sciatica M54.40 Active confirmed 192525659 Problem COPD (chronic obstructive pulmonary disease) wit h chronic bronchitis J44.9 Active confirmed 408950895 Problem Insomnia, unspecified type G47.00 Active confirmed 261127978 Problem Non-seasonal allergic rhinitis, unspecified trigger J30.89 Active confirmed 73431867 Problem Neuropathic pain, leg, bilateral G57.93 Active conf irmed 62978795 Problem Carpal tunnel syndrome of right wrist G56.01 Ac tive confirmed 263120760094558 Problem Alcohol abuse F10.10 Active confirmed 600781 05 Problem Allergic rhinitis, unspecified seasonality, unspecifie d trigger J30.9 Active confirmed 14490667 Problem Degenerative disc disease, lumbar M51.36 Active confirmed 80006248 Problem Anxiety F41.9 Active confirmed 96274118 Problem Cigarette nicotine dependence with other nicotin e-induced disorder F17.218 Active confirmed 84704146 Problem Colonic diverticular abscess K57.20 Active confirme d 586175615 Problem Thromboangiitis obliterans I73.1 Active confirmed 67401015 Problem Current moderate episode of major depressive disorder without prior episode F32.1 Active confirmed 59808944 ALLERGIES No Known Allergies ENCOUNTERS from 1970 to 2021-05-16 Encounter Location Date Provider Diagnosis [facility] [address] [phone] [place] [address] May, Brando Mcdowell IMMUNIZATIONS Vaccine Route Administration Date Status Influenza [...] 9 Audit Question Answer Notes Total Score: 8 Interpretation: Simple Advice Language: Question Answer Notes Languages spoken: Sinhala Latter Day: Question Answer Notes Latter Day 33 None Sexual Hx: Question Answer Notes [...] effects, education provided 06/03/2019 REASON FOR REFERRAL No Information VITAL SIGNS No information MEDICATIONS Medication SIG (Take, Route, Frequency, Duration) Notes Start Da te End Date Status Ventolin HFA 108 (90 Base) MCG/ACT 2 puffs as needed I nhalation every 4 hrs for 30 days Active Plavix 75 MG 1 tablet Orally Once a day for 90 day(s) Not taking pe r surgeon Not-Taking Gabapentin 300 MG 1 capsule Orally TID for 30 days Active Breo Ellipta 100-25 MCG/INH 1 puff Inhalation Once a day for 30 days Apr, Active DULoxetine HCl 60 MG 1 capsule Orally Once a day for 30 day(s) Active tiZANidine HCl 2 MG 1 tablet as needed Orally Three times a day for 30 days Apr, Active PROCEDURES No Information RESULTS No Results REASON FOR VISIT MRI lumbar with and without MEDICAL (GENERAL) HISTORY Type Description Date Medical [...] No Information FUNCTIONAL STATUS No Information ASSESSMENTS No Information PLAN OF TREATMENT Medication Medication Name Sig Start Date Stop Date Ventolin HFA 108 (90 Base) MCG/ACT 2 puffs as needed I nhalation every 4 hrs for 30 days DULoxetine HCl 60 MG 1 capsule Orally Once a day for 30 day(s) tiZANidine HCl 2 MG 1 tablet as needed Orally Three times a day for 30 days Apr, Breo Ellipta 100-25 MCG/INH 1 puff Inhalation Once a day for 30 days Apr, Gabapentin 300 MG 1 capsule Orally TID for 30 days Next Appt Details Provider Name:Brando Mcdowell, 2021-07-11 08 :15:00 AM, [address] [facility], , [place], [address], Provider Name:Bib Oliver, 2021-08-02 08:30:00 AM, [address], , [place], [address], Insurance Providers Payer Name Payer Address Payer Phone Insured Name Patient Relati onship to Insured Coverage Start Date Coverage End Date [facility] [address] [place] [phone] DANY JASON [id number]
--- OUTSIDE RECORDS SUMMARY | 2021-06-05 03:35 | CCD ---
Author Author [facility] Organization [facility] Address Unknown Phone Unavailable Care Team Providers Care Golf Sales Associate Name Role Phone Jeramy DENNIS MD Unavailable Unavailable Jeramy DENNIS MD Unavailable Unavailable Jeramy DENNIS MD Unavailable Unavailable Jeramy DENNIS MD Unavailable Unavailable Jeramy DENNIS MD Unavailable Unavailable Jeramy DENNIS MD Unavailable Unavailable Jeramy DENNIS MD Unavailable Unavailable Jeramy DENNIS MD Unavailable Unavailable Jeramy DENNIS MD Unavailable Unavailable Jeramy DENNIS MD Unavailable Unavailable Jeramy DENNIS MD Unavailable Unavailable Jeramy DENNIS MD Unavailable Unavailable Jeramy DENNIS MD Unavailable Unavailable BARAYUGAJeramy MD Unavailable Unavailable BARAYUGAJeramy MD Unavailable Unavailable BARAYUGAJeramy MD Unavailable Unavailable BARAYUGA, Jeramy QUINTANILLA MD Unavailable Unavailable BARAYUGA, Jeramy QUINTANILLA MD Unavailable Unavailable BARAYUGAJeramy MD Unavailable Unavailable CRISTAUGAJeramy MD Unavailable Unavailable BARAYUGAJeramy MD Unavailable Unavailable BARAYUGA, Jeramy QUINTANILLA MD Unavailable Unavailable BARAYUGA, Jeramy QUINTANILLA MD Unavailable Unavailable BARAYUGA, Jeramy QUINTANILLA MD Unavailable Unavailable BARAYUGAJeramy MD Unavailable Unavailable BARAYUGA, Jeramy QUINTANILLA MD Unavailable Unavailable BARAYUGA, Jeramy QUINTANILLA MD Unavailable Unavailable BARAYUGA, Jeramy QUINTANILLA MD Unavailable Unavailable BARAYUGA, Jeramy QUINTANILLA MD Unavailable Unavailable CRISTAUGA, Jeramy QUINTANILLA MD Unavailable Unavailable CRISTAUGAJeramy MD Unavailable Unavailable CRISTAUGAJeramy MD Unavailable Unavailable CRISTAUGAJeramy MD Unavailable Unavailable CRISTAUGAJeramy MD Unavailable Unavailable CRISTAUGAJeramy MD Unavailable Unavailable MayoEmma MD Unavailable Unavailable MayoEmma MD Unavailable Unavailable MayoEmma MD Unavailable Unavailable MayoEmma MD Unavailable Unavailable MayoEmma MD Unavailable Unavailable MayoEmma MD Unavailable Unavailable MayoEmma MD Unavailable Unavailable MayoEmma MD Unavailable Unavailable Emma Mayo MD Unavailable Unavailable Emma Mayo MD Unavailable Unavailable MayoEmma masterson MD Unavailable Unavailable MayoEmma MD Unavailable Unavailable MayoEmma MD Unavailable Unavailable MayoEmma MD Unavailable Unavailable MayoEmma MD Unavailable Unavailable MayoEmma MD Unavailable Unavailable MayoEmma MD Unavailable Unavailable MayoEmma masterson MD Unavailable Unavailable MayoEmma masterson MD Unavailable Unavailable MayoEmma masterson MD Unavailable Unavailable MayoEmma masterson MD Unavailable Unavailable MayoEmma MD Unavailable Unavailable MayoEmma MD Unavailable Unavailable MayoEmma MD Unavailable Unavailable MayoEmma masterson MD Unavailable Unavailable Emma Mayo MD Unavailable Unavailable Emma Mayo MD Unavailable Unavailable Emma Mayo MD Unavailable Unavailable MayoEmma MD Unavailable Unavailable MayoEmma MD Unavailable Unavailable MayoEmma MD Unavailable Unavailable Mayo, L Farhat MD Unavailable Unavailable Mayo, L Farhat MD Unavailable Unavailable Mayo, L Farhat MD Unavailable Unavailable Mayo, L Farhat MD Unavailable Unavailable Mayo, L Farhat MD Unavailable Unavailable Mayo, L Farhat MD Unavailable Unavailable Mayo, L Farhat MD Unavailable Unavailable Mayo, L Farhat MD Unavailable Unavailable Mayo, L Farhat MD Unavailable Unavailable Mayo, L Farhat MD Unavailable Unavailable Mayo, L Farhat MD Unavailable Unavailable Mayo, L Farhat MD Unavailable Unavailable Mayo, L Farhat MD Unavailable Unavailable Mayo, L Farhat MD Unavailable Unavailable Mayo, L Farhat MD Unavailable Unavailable Mayo, L Farhat MD Unavailable Unavailable Mayo, L Farhat MD Unavailable Unavailable Mayo, L Farhat MD Unavailable Unavailable Myao, L Farhta MD Unavailable Unavailable Re-disclosure Warning The records that you are about to access may contain information from federally-assisted alcohol or drug abuse programs. If such information is present, then the following federally mandated warning applies: This information has been disclosed to you from records protected by federal confidentiality rules (42 CFR part 2). The federal rules prohibit you from making any further disclosure of this information unless further disclosure is expressly permitted by the written consent of the person to whom it pertains or as otherwise permitted by 42 CFR part 2. A general authorization for the release of medical or other information is NOT sufficient for this purpose. The Federal rules restrict any use of the information to criminally investigate or prosecute any alcohol or drug abuse patient.The records that you are about to access may contain highly sensitive health information, the redisclosure of which is protected by Article 27-F of the [facility] Public Health law. If you continue you may have access to information: Regarding HIV / AIDS; Provided by facilities licensed or operated by the [facility] Office of Mental Health; or Provided by the [facility] Office for People With Developmental Disabilities. If such information is present, then the following [facility] mandated warning applies: This information has been disclosed to you from confidential records which are protected by state law. State law prohibits you from making any further disclosure of this information without the specific written consent of the person to whom it pertains, or as otherwise permitted by law. Any unauthorized further disclosure in violation of state law may result in a fine or custodial sentence or both. A general authorization for the release of medical or other information is NOT sufficient authorization for further disc losure. Family History Family Member Name Family Member Gender Family Member Status Date o f Status Description Data Source(s) Unknown Unknown Problem MEDENT ([facility]) Encounters Encounter Providers Location Date Indications Data Source(s ) [place] [address] [facility] [address] 05/15/2021 12:00:00 AM EDT eCW1 ([facility]) [place] [address] [facility] [address] 02/09/2021 12:00:00 AM EDT eCW1 ([facility]) [place] [address] [facility] [address] 01/23/2021 12:00:00 AM EDT [facility] [place] [address] [facility] [address] 01/02/2021 12:00:00 AM EDT [facility]CW1 [facility] [place] [address] [facility] [facility] [address] 10/19/2020 12:00:00 AM EDT eCW1 [facility] [place] [address] [facility] [address] 09/19/2020 12:00:00 AM EST [facility]CW1 [facility] [place] [address] [facility] [address] 08/15/2020 12:00:00 AM EST eCW1 [facility] [place] [address] [facility] [address] 08/03/2020 12:00:00 AM EST eCW1 ([facility]) Outpatient Attender: SOCORRO Winchester/Светлана/Rodger/ Reindl 08/02/2020 02:45:00 PM EST MEDENT ([facility] Outpatient Attender: SOCORRO Winchester/Светлана/Rodger/ Reindl 07/28/2020 09:45:00 AM EST MEDENT ([facility]) [place] [address] [facility] [address] 07/25/2020 12:00:00 AM EST eCW1 ([facility]) [place] [address] [facility] [address] 07/25/2020 12:00:00 AM EST eCW1 ([facility]) Outpatient Attender: Farhat Mayo MD Physical Therapy 07/04/2020 0 8:00:00 AM EST MEDENT ([facility]) Outpatient Attender: Farhat Mayo MD Physical Therapy 06/21/2020 0 9:15:00 AM EST MEDENT ([facility]) [place] [address] [facility] [address] 05/27/2020 12:00:00 AM EST eCW1 ([facility]) [place] [address] [facility] [address] 05/09/2020 12:00:00 AM EDT eCW1 ([facility]) Office Visit Attender: Farhat Mayo MD Physical Therapy 2019 08:15:00 AM EDT MEDENT ([facility]) [place] [address] [facility] [address] 05/03/2020 12:00:00 AM EDT eCW1 ([facility]) Immunizations Vaccine Date Status Description Data Source(s) COVID-19 VACCINE Moderna 04/06/2021 12:00:00 AM EDT completed [facility] Vaccine Series Complete: YESThis Data wa s Submitted to [facility] Via [employer]. COVID-19 VACCINE Moderna 02/23/2021 12:00:00 AM EDT completed [facility] Vaccine Series Complete: NOThis Data was Submitted to [facility] Via [employer]. Medications Medication Brand Name Start Date Product Form Dose Route Admi nistrative Instructions Pharmacy Instructions Status Indications Reaction Description Data Source(s) tizanidine 2 MG Oral Tablet TIZANIDINE HCL 05/13/2021 12:00:00 AM EDT tablet 90 TAKE ONE TABLET BY MOUTH THREE TIMES A DAY NEEDED T SUSAN ONE TABLET BY MOUTH THREE TIMES A DAY NEEDED SOLD: 05/15/2021 [facility] 90 mcg/actuation 05/13/2021 12:00:00 AM EDT HFA aerosol inha ler 18 INHALE 2 PUFFS BY MOUTH EVERY 4 HOURS NEEDED INHALE 2 PUFFS BY MOUTH EVERY 4 HOURS NEEDED SOLD: 05/15/2021 [facility] 60 mg 05/13/2021 12:00:00 AM EDT capsule,delayed release (DR/EC) 30 TAKE ONE CAPSULE BY MOUTH EVERY DAY TAKE ONE CAPSULE BY MOUTH EVERY DAY SOLD: 05/15/2021 [facility] 300 mg 05/12/2021 12:00:00 AM EDT capsule 90 TAKE ONE CAPSULE BY MOUTH THREE TIMES A DAY TAKE ONE CAPSULE BY MOUTH THREE TIMES A DAY SOLD: 05/15/2021 [facility] 30 ACTUAT fluticasone furoate 0.1 MG/ACT UAT / vilanterol 0.025 MG/ACTUAT Dry Powder Inhaler [Breo] Breo Ellipta 100-25 MCG/INH Breo Ellipta 100-25 MCG/INH 05/12/2021 12:00:00 AM EDT 1.0 {puff} active Breo Ellipta 100-25 MCG/INH eCW1 (Pending Sale To [facility]) tizanidine 2 MG Oral Tablet tiZANidine HCl 2 MG tiZANidine H Cl 2 MG 05/12/2021 12:00:00 AM EDT 1.0 {tablet_as_needed} active tiZANidine HCl 2 MG eCW1 (Pending Sale To [facility]) Methocarbamol 500 MG Oral Tablet Methocarbamol 500 MG 2020 12:00:00 AM EDT 1.0 {tablet} active Methocarbam ol 500 MG eCW1 (Pending Sale To [facility]) Methocarbamol 500 MG Oral Tablet Methocarbamol 500 MG 2020 12:00:00 AM EDT 1.0 {tablet} active Methocarbam ol 500 MG eCW1 (Pending Sale To [facility]) duloxetine 30 MG Delayed Release Oral Capsule DULoxeti ne HCl 30 MG DULoxetine HCl 30 MG 01/23/2021 12:00:00 AM EDT 1.0 {capsule} a ctive DULoxetine HCl 30 MG eCW1 (Pending Sale To [facility]) 30 mg 01/23/2021 12:00:00 AM EDT capsule,delayed release (DR/EC) 30 TAKE ONE CAPSULE BY MOUTH EVERY DAY TAKE ONE CAPSULE BY MOUTH EVERY DAY SOLD: 01/24/2021 [facility] 90 mcg/actuation 01/23/2021 12:00:00 AM EDT HFA aerosol inha ler 18 INHALE 2 PUFFS BY MOUTH EVERY 4 HOURS NEEDED INHALE 2 PUFFS BY MOUTH EVERY 4 HOURS NEEDED SOLD: 01/24/2021 [facility] 90 mcg/actuation 01/23/2021 12:00:00 AM EDT HFA aerosol inha ler 18 INHALE 2 PUFFS BY MOUTH EVERY 4 HOURS NEEDED INHALE 2 PUFFS BY MOUTH EVERY 4 HOURS NEEDED SOLD: 04/20/2021 [facility] 500 mg 01/23/2021 12:00:00 AM EDT tablet 90 TAKE ONE TABLET BY MOUTH EVERY 8 HOURS TAKE ONE TABLET BY MOUTH EVERY 8 HOURS SOLD: 01/24/2021 [facility] duloxetine 30 MG Delayed Release Oral Capsule DULoxeti ne HCl 30 MG DULoxetine HCl 30 MG 01/23/2021 12:00:00 AM EDT 1.0 {capsule} a ctive DULoxetine HCl 30 MG eCW1 (Pending Sale To [facility]) 300 mg 01/23/2021 12:00:00 AM EDT capsule 90 TAKE ONE CAPSULE BY MOUTH THREE TIMES A DAY TAKE ONE CAPSULE BY MOUTH THREE TIMES A DAY SOLD: 01/24/2021 [facility] 90 mcg/actuation 01/23/2021 12:00:00 AM EDT HFA aerosol inha ler 18 INHALE 2 PUFFS BY MOUTH EVERY 4 HOURS NEEDED INHALE 2 PUFFS BY MOUTH EVERY 4 HOURS NEEDED SOLD: 03/09/2021 [facility] Escitalopram 5 MG Oral Tablet ESCITALOPRAM OXALATE 01/03/2021 12 :00:00 AM EDT tablet 30 TAKE ONE TABLET BY MOUTH EVERY D AY TAKE ONE TABLET BY MOUTH EVERY DAY SOLD: 01/03/2021 [facility] Escitalopram 5 MG Oral Tablet [Lexapro] Lexapro 5 MG Lexapro 5 MG 01/02/2021 12:00:00 AM EDT 1.0 {tablet} active Le xapro 5 MG eCW1 (Pending Sale To [facility]) Metronidazole 500 MG Oral Tablet METRONIDAZOLE 09/21/2020 12:0 0:00 AM EST tablet 30 TAKE ONE TABLET BY MOUTH THREE T IMES A DAY FOR 10 DAYS TAKE ONE TABLET BY MOUTH THREE TIMES A DAY FOR 10 DAYS SOLD: 09/24/2020 [facility] 500 mg 09/21/2020 12:00:00 AM EST tablet 20 TAKE ONE TABLET BY MOUTH TWICE A DAY FOR 10 DAYS TAKE ONE TABLET BY MOUTH TWICE A DAY FOR 10 DAYS SOLD: 09/24/2020 [facility] Metronidazole 500 MG Oral Tablet Metronidazole 09/21/2020 12:00:00 AM EST completed MEDENT ([facility] ) Ciprofloxacin 500 MG Oral Tablet [Cipro] Cipro 09/21/2020 12:00: 00 AM EST ORAL completed MEDENT ([facility] ) 300 mg 08/15/2020 12:00:00 AM EST capsule 90 TAKE ONE CAPSULE BY MOUTH THREE TIMES A DAY TAKE ONE CAPSULE BY MOUTH THREE TIMES A DAY SOLD: 08/15/2020 [facility] 300 mg 08/15/2020 12:00:00 AM EST capsule 90 TAKE ONE CAPSULE BY MOUTH THREE TIMES A DAY TAKE ONE CAPSULE BY MOUTH THREE TIMES A DAY SOLD: 09/28/2020 [facility] 300 mg 07/25/2020 12:00:00 AM EST capsule 60 TAKE ONE CAPSULE BY MOUTH TWICE A DAY TAKE ONE CAPSULE BY MOUTH TWICE A DAY SOLD: 07/25/2020 [facility] [employer] Metronidazole 500 MG Oral Tablet Metronidazole 500 MG 2020 12:00:00 AM EST 1.0 {tablet} suspended Metronid azole 500 MG eCW1 (Pending Sale To [facility]) Metronidazole 500 MG Oral Tablet Metronidazole 500 MG 2020 12:00:00 AM EST 1.0 {tablet} active Metronidazo le 500 MG eCW1 (Pending Sale To [facility]) Ciprofloxacin 500 MG Oral Tablet Ciprofloxacin HCl 500 MG Ciprofloxacin HCl 500 MG 07/23/2020 12:00:00 AM EST 1.0 {tablet} activ e Ciprofloxacin HCl 500 MG eCW1 (Pending Sale To [facility]) 500 mg 07/23/2020 12:00:00 AM EST tablet 20 TAKE ONE TABLET BY MOUTH TWO TIMES A DAY TAKE ONE TABLET BY MOUTH TWO TIMES A DAY SOLD: 07/23/2020 [facility] Metronidazole 500 MG Oral Tablet METRONIDAZOLE 07/23/2020 12:0 0:00 AM EST tablet 30 TAKE ONE TABLET BY MOUTH EVERY 8 HOURS FOR 10 DAYS TAKE ONE TABLET BY MOUTH EVERY 8 HOURS FOR 10 DAYS SOLD: 07/23/2020 [facility] Metronidazole 500 MG Oral Tablet Metronidazole 500 MG 2020 12:00:00 AM EST 1.0 {tablet} active Metronidazo le 500 MG eCW1 (Pending Sale To [facility]) Ciprofloxacin 500 MG Oral Tablet Ciprofloxacin HCl 500 MG Ciprofloxacin HCl 500 MG 07/23/2020 12:00:00 AM EST 1.0 {tablet} activ e Ciprofloxacin HCl 500 MG eCW1 (Pending Sale To [facility]) Ciprofloxacin 500 MG Oral Tablet Ciprofloxacin HCl 500 MG Ciprofloxacin HCl 500 MG 07/23/2020 12:00:00 AM EST 1.0 {tablet} suspe nded Ciprofloxacin HCl 500 MG eCW1 (Pending Sale To [facility]) Ciprofloxacin 500 MG Oral Tablet Ciprofloxacin HCl 500 MG Ciprofloxacin HCl 500 MG 07/23/2020 12:00:00 AM EST 1.0 {tablet} suspe nded Ciprofloxacin HCl 500 MG eCW1 (Pending Sale To [facility]) Metronidazole 500 MG Oral Tablet Metronidazole 500 MG 2020 12:00:00 AM EST 1.0 {tablet} suspended Metronid azole 500 MG eCW1 (Pending Sale To [facility]) Diclofenac Sodium 0.01 MG/MG Topical Gel Voltaren 06/21/2020 12 :00:00 AM EST active MEDENT ([facility]) gabapentin 300 MG Oral Capsule Gabapentin 300 MG Gabapentin 300 MG 05/09/2020 12:00:00 AM EDT 1.0 {capsule} active G abapentin 300 MG eCW1 (Pending Sale To [facility]) 300 mg 05/09/2020 12:00:00 AM EDT capsule 60 TAKE ONE CAPSULE BY MOUTH TWICE A DAY TAKE ONE CAPSULE BY MOUTH TWICE A DAY SOLD: 05/10/2020 [facility] 75 mg 05/09/2020 12:00:00 AM EDT tablet 30 TAKE ONE TABLET BY MOUTH EVERY DAY TAKE ONE TABLET BY MOUTH EVERY DAY SOLD: 11/01/2020 [facility] 90 mcg/actuation 05/09/2020 12:00:00 AM EDT HFA aerosol inha ler 18 INHALE TWO PUFFS BY MOUTH EVERY 4 HOURS NEEDED INHALE TWO PUFFS BY MOUTH EVERY 4 HOURS NEEDED SOLD: 05/10/2020 [facility] 75 mg 05/09/2020 12:00:00 AM EDT tablet 30 TAKE ONE TABLET BY MOUTH EVERY DAY TAKE ONE TABLET BY MOUTH EVERY DAY SOLD: 09/28/2020 [facility] 75 mg 05/09/2020 12:00:00 AM EDT tablet 90 TAKE ONE TABLET BY MOUTH EVERY DAY TAKE ONE TABLET BY MOUTH EVERY DAY SOLD: 05/10/2020 [facility] 90 mcg/actuation 05/09/2020 12:00:00 AM EDT HFA aerosol inha ler 18 INHALE TWO PUFFS BY MOUTH EVERY 4 HOURS NEEDED INHALE TWO PUFFS BY MOUTH EVERY 4 HOURS NEEDED SOLD: 11/01/2020 [facility] 90 mcg/actuation 05/09/2020 12:00:00 AM EDT HFA aerosol inha ler 18 INHALE TWO PUFFS BY MOUTH EVERY 4 HOURS NEEDED INHALE TWO PUFFS BY MOUTH EVERY 4 HOURS NEEDED SOLD: 09/14/2020 [facility] gabapentin 300 MG Oral Capsule Gabapentin 300 MG Gabapentin 300 MG 05/09/2020 12:00:00 AM EDT 1.0 {capsule} active G abapentin 300 MG eCW1 (Pending Sale To [facility]) 75 mg 12/11/2019 12:00:00 AM EDT tablet 30 TAKE ONE TABLET BY MOUTH EVERY DAY TAKE ONE TABLET BY MOUTH EVERY DAY SOLD: 04/04/2020 [facility] 90 mcg/actuation 05/26/2019 12:00:00 AM EST HFA aerosol inha ler 18 INHALE 2 PUFFS BY MOUTH EVERY 4 HOURS NEEDED INHALE 2 PUFFS BY MOUTH EVERY 4 HOURS NEEDED SOLD: 04/04/2020 [facility] Insurance Providers Payer name Policy type / Coverage type Policy ID Covered democrat ID Covered democrat's relationship to garcia Policy Garcia Plan Information [facility] COMM[facility]ITY [facility]AN [facility] [id number] SP [id number] [facility] I [id number] Self [id number] [facility] PLAN [facility] [id number] SP [id number] [facility] I [id number] Self [id number] ANSI-Medicaid [id number] ANSI-Medicaid [id number] ANSI-Medicaid [id number] ANSI-Medicaid [id number] ANSI-Medicaid [id number] ANSI-Medicaid [id number] ANSI-Medicaid [id number] ANSI-Medicaid [id number] ANSI-Medicaid [id number] ANSI-Medicaid [id number] ANSI-Medicaid [id number] [facility] [employer] (HMO) [id number] Self [place] PPO [phone] [id number] [id number] O BLUE [id number] [facility] [id number] [employer] P [id number] S [id number] O BLUE [id number] SP [id number] [facility] COMM[facility]ITY [facility] [id number] SP [id number] [facility] COMMUNITY [facility]AN [facility] [id number] SP [id number] [facility] [id number] [place]2 [id number] [facility] O [id number] S [id number] Problems, Conditions, and Diagnoses Code Display Name Description Problem Type Effective Dates Data Source(s) M51.36 60321048 Degenerative disc disease, lumbar Problem 05/12/2021 12:00:00 AM EDT eCW1 (Pending Sale To [facility]) F32.1 [id number] Current moderate epi sode of major depressive disorder without prior episode Problem 01/02/2021 12:00:00 AM EDT eCW1 ([facility]) 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 31114689 Thromboangiitis obliterans Problem 12:00:00 AM EDT eCW1 (Pending Sale To [facility]) F10.10 [id number] Alcohol abuse Problem 01/02/2021 12:00:00 AM EDT eCW1 (Pending Sale To [facility]) K57.20 [id number] Colonic diverticular abscess Problem 08/03/2020 12:00:00 AM EST eCW1 (Pending Sale To [facility]) F17.218 Nicotine dependence Cigarette nicotine d ependence with other nicotine- induced disorder Problem 08/03/2020 12:00:00 AM EST eCW1 ([facility]) G56.01 [id number] Carpal tunnel syndrome of right wrist Problem 05/09/2020 12:00:00 AM EDT eCW1 (Pending Sale To [facility]) G57.93 47470525 Neuropathic pain, leg, bilateral Problem 05/09/2020 12:00:00 AM EDT eCW1 (Pending Sale To [facility]) Surgeries/Procedures Procedure Description Date Indications Data Source(s) Colonoscopy,W/Directed Submucosal Injections, Any Substance 09/21/2020 12:00:00 AM EST MEDENT ([facility]) Colonoscopy W/ Poly 09/21/2020 12:00:00 AM EST MEDENT ([facility] ) MRI Upper Extremity Any Joint 06/28/2020 12:00:[address] MEDENT ([facility] ) RADEX HAND MINIMUM 3 VIEWS 06/21/2020 12:00:00 AM EST MEDENT ([facility] ) Physical Therapy Eval - Low Complexity 05/26/2020 12:0 0:00 AM EST MEDENT ([facility]) Results ID Date Data Source [id number] 03/02/2021 03:42:00 PM EDT [facility] Name Value Range Interpretation Code Description Data Cecile rce(s) Supporting Document(s) SARS-CoV-2 (COVID 19) NEGATIVE - SARS-CoV-2 (COVID19) [facility] This lab was ordered by [facility] a nd reported by [facility]. ID Date Data Source TSH 01/03/2021 12:00:00 AM EDT eCW1 ([facility]) Name Value Range Interpretation Code Description Data Cecile rce(s) Supporting Document(s) 0.366 0.358-3.740 THYROID STIMULATING HORM ONE eCW1 (Pending Sale To [facility]) ID Date Data Source LIPID PANEL (CARDIAC RISK) 01/03/2021 12:00:00 AM EDT eCW1 ( Pending Sale To [facility]) Name Value Range Interpretation Code Description Data Cecile rce(s) Supporting Document(s) Triglyceride [Mass/volume] in Serum or Plasma by calculation 95 <150 TRIGLYCERIDES LEVEL eCW1 (Pending Sale To [facility]) Cholesterol in HDL [Moles/volume] in Serum or Plasma 95 >40 HDL CHOLESTEROL eCW1 (Pending Sale To [facility]) Cholesterol [Moles/volume] in Serum or Plasma 220 <200 CHOLESTEROL LEVEL eCW1 (Pending Sale To [facility]) Cholesterol in LDL [Mass/volume] in Serum or Plasma by calculation 106 <100 LDL CHOLESTEROL eC1 (Pending Sale To [facility]) 2.315 <5 CHOLESTEROL RISK RATIO eCW1 ([facility]) 125 NON-HDL-C eCW1 ([facility]) ID Date Data Source GAMMA GLUTAMYLTRANSPEPTIDASE 01/03/2021 12:00:00 AM EDT eCW1 (Pending Sale To [facility]) Name Value Range Interpretation Code Description Data Cecile rce(s) Supporting Document(s) 142 15-85 GAMMA GLUTAMYLTRANSPEPTID ASE eCW1 (Pending Sale To [facility]) ID Date Data Source Comprehensive Metabolic Profile (CMP) 01/03/2021 12:00:00 AM EDT eCW1 (Pending Sale To [facility]) Name Value Range Interpretation Code Description Data Cecile rce(s) Supporting Document(s) 103 70-100 GLUCOSE, FASTING eCW1 ([facility]) 6 7-18 BLOOD UREA NITROGEN eCW1 ([facility]) 0.74 0.70-1.30 CREATININE FOR GFR eCW1 ([facility]) 140 136-145 SODIUM LEVEL eCW1 ([facility]) > 60.0 >56 GLOMERULAR FILTRATION RATE eCW 1 (Pending Sale To [facility]) 28 21-32 CARBON DIOXIDE LEVEL eCW1 ([facility]) 3.7 3.5-5.1 POTASSIUM SERUM eCW1 ([facility]) 103 98-107 CHLORIDE LEVEL eCW1 (Pending Sale To [facility]) 28 7-37 AST/SGOT eCW1 ([facility]) 8.8 8.5-10.1 CALCIUM LEVEL eCW1 (Pending Sale To [facility]) 111 45-117 ALKALINE PHOSPHATASE eCW1 ([facility]) 30 12-78 ALT/SGPT eCW1 ([facility]) 7.2 6.4-8.2 TOTAL PROTEIN eCW1 (Pending Sale To [facility]) 4.2 3.2-5.2 ALBUMIN eCW1 ([facility]) 0.4 0.2-1.0 BILIRUBIN,TOTAL eCW1 ([facility]) 1.4 ALBUMIN/GLOBULIN RATIO eCW1 ([facility] [place]) ID Date Data Source CBC with Differential 01/03/2021 12:00:00 AM EDT eCW1 ([facility]) Name Value Range Interpretation Code Description Data Cecile rce(s) Supporting Document(s) 11.3 4.0-10.0 WHITE BLOOD COUNT eCW1 ([facility]) 4.62 4.30-6.10 RED BLOOD COUNT eCW1 ([facility]) 15.5 13.5-17.5 HEMOGLOBIN eCW1 ([facility]) 46.1 42.0-52.0 HEMATOCRIT eCW1 ([facility]) 99.8 80.0-96.0 MEAN CORPUSCULAR VOLUME e CW1 ([facility]) 33.6 32.0-36.5 MEAN CORPUSCULAR HGB CONC eCW1 ([facility] To [facility]) 33.5 27.0-33.0 MEAN CORPUSCULAR HEMOGLOB IN eCW1 ([facility]ending [facility] To [facility]) 248 150-450 PLATELET COUNT, AUTOMATED eCW1 ([facility]) 14.6 11.5-14.5 RED CELL DISTRIBUTION WID TH eCW1 ([facility]) 74.7 36.0-66.0 NEUTROPHILS % eCW1 ([facility]) 14.1 24.0-44.0 LYMPH % eCW1 ([facility]) 9.1 2.0-8.0 MONO % eCW1 ([facility]) 0.9 0.0-3.0 EOS % eCW1 ([facility]) 8.5 1.5-8.5 NEUTROPHILS # eCW1 ([facility]) 0.8 0.0-1.0 BASO % eCW1 ([facility]) 1.0 0.0-0.8 MONO # eCW1 ([facility]) 1.6 1.5-5.0 LYMPH # eCW1 ([facility]) 0.1 0.0-0.5 EOS # eCW1 ([facility]) 0.1 0.0-0.2 BASO # eCW1 ([facility]) ID Date Data Source [id number] 09/16/2020 11:00:00 AM EST [facility] Name Value Range Interpretation Code Description Data Cecile rce(s) Supporting Document(s) SARS coronavirus 2 RNA Not Detected [facility] [place] This lab was ordered by [facility] and reported by [facility]. ID Date Data Source [id number] 07/22/2020 03:08:00 PM EST [facility] Name Value Range Interpretation Code Description Data Cecile rce(s) Supporting Document(s) SARS coronavirus 2 RNA [Presence] in Res piratory specimen by LUCIE with probe detection NEGATIVE [facility] This lab was ordered by [facility] a nd reported by [facility]. Procedure Social History Code Duration Value Status Description Data Source(s ) Smoking 05/12/2021 12:00:00 AM EDT Current Smoker completed Curre nt Smoker eCW1 ([facility]) Smoking 01/23/2021 12:00:00 AM EDT Current Smoker completed Curre nt Smoker eCW1 ([facility] To [facility]) Smoking 01/23/2021 12:00:00 AM EDT Current Smoker completed Curre nt Smoker eCW1 ([facility]) Smoking 01/02/2021 12:00:00 AM EDT Current Smoker completed Curre nt Smoker eCW1 ([facility]) Smoking 09/16/2020 12:00:00 AM EST Current Smoker completed Curre nt Smoker eCW1 ([facility]) Smoking 09/16/2020 12:00:00 AM EST Current Smoker completed Curre nt Smoker eCW1 ([facility]) Smoking 08/03/2020 12:00:00 AM EST Current Smoker completed Curre nt Smoker eCW1 ([facility]) Smoking 08/03/2020 12:00:00 AM EST Current Smoker completed Curre nt Smoker eCW1 ([facility] To [facility]) Smoking 06/16/2020 12:00:00 AM EST Current Smoker completed Curre nt Smoker eCW1 ([facility]) Smoking 06/16/2020 12:00:00 AM EST Current Smoker completed Curre nt Smoker eCW1 ([facility]) Smoking 05/09/2020 12:00:00 AM EDT Current Smoker completed Curre nt Smoker eCW1 ([facility]) Smoking 05/09/2020 12:00:00 AM EDT Current Smoker completed Curre nt Smoker eCW1 ([facility] To [facility]) Vital Signs ID Date Data Source UNK Name Value Range Interpretation Code Description Data Source(s) Systolic blood pressure 110 mm[Hg] 110 mm[Hg] e CW1 ([facility]) Diastolic blood pressure 70 mm[Hg] 70 mm[Hg] eCW1 ([facility]) Body weight 145.6 [lb_av] 145.6 [lb_av] eCW1 ([facility] [place]) Body height 71 [in_i] 71 [in_i] eCW1 ([facility]) Body mass index (BMI) [Ratio] 20.30 kg/m2 20.30 kg/m2 W1 ([facility]) Heart rate 98 /min 98 /min eCW1 ([facility]) Respiratory rate 18 /min 18 /min eCW1 ([facility]) Body temperature 97.1 [degF] 97.1 [degF] eCW1 ( [facility]) Body weight 146.0 [lb_av] 146.0 [lb_av] eCW1 ([facility] [place]) Body height 71 [in_i] 71 [in_i] eCW1 ([facility]) Body mass index (BMI) [Ratio] 20.36 kg/m2 20.36 kg/m2 eCW1 ([facility]) Heart rate 94 /min 94 /min eCW1 ([facility]) Respiratory rate 18 /min 18 /min eCW1 ([facility]) Body temperature 97.4 [degF] 97.4 [degF] eCW1 ( [facility]) Systolic blood pressure 138 mm[Hg] 138 mm[Hg] e CW1 ([facility] To [facility]) Diastolic blood pressure 88 mm[Hg] 88 mm[Hg] eCW1 ([facility] To [facility]) Systolic blood pressure 126 mm[Hg] 126 mm[Hg] M EDENT ([facility], ) Diastolic blood pressure 72 mm[Hg] 72 mm[Hg] MEDENT ([facility]) Heart rate 109 /min 109 /min [facility] Body height 71 [in_i] 71 [in_i] [facility] ([facility]) 5'11" Body weight 144.38 [lb_av] 144.38 [lb_av] MEDEN T ([facility]) Body mass index (BMI) [Ratio] 20.1 kg/m2 20.1 k g/m2 [facility] ([facility]) [place] body weight 172 [lb_av] 172 [lb_av] MEDEN T ([facility]) Body weight 65.489 kg 65.489 kg [facility] ([facility]) Body surface area Derived from formula 1.84 m2 1.84 m2 [facility] ([facility]) Systolic blood pressure 124 mm[Hg] 124 mm[Hg] e CW1 ([facility]) Body weight 151 [lb_av] 151 [lb_av] eCW1 ([facility]) Body height 71 [in_i] 71 [in_i] eCW1 ([facility]) Body mass index (BMI) [Ratio] 21.06 kg/m2 21.06 kg/m2 eCW1 ([facility]) Heart rate 116 /min 116 /min eCW1 ([facility]) Respiratory rate 18 /min 18 /min eCW1 ([facility]) Body temperature 96.6 [degF] 96.6 [degF] eCW1 ( [facility]) Diastolic blood pressure 84 mm[Hg] 84 mm[Hg] eCW1 ([facility]) Body weight 152 [lb_av] 152 [lb_av] eCW1 ([facility]) Body height 71 [in_i] 71 [in_i] eCW1 ([facility]) Body mass index (BMI) [Ratio] 21.20 kg/m2 21.20 kg/m2 eCW1 ([facility]) Heart rate 95 /min 95 /min eCW1 ([facility]) Respiratory rate 17 /min 17 /min eCW1 ([facility]) Body temperature 96.8 [degF] 96.8 [degF] eCW1 ( [facility]) Systolic blood pressure 118 mm[Hg] 118 mm[Hg] e CW1 ([facility]) Diastolic blood pressure 80 mm[Hg] 80 mm[Hg] eCW1 ([facility]) Body weight 191.50 [lb_av] 191.50 [lb_av] MEDEN T ([facility]) Body mass index (BMI) [Ratio] 26.7 kg/m2 26.7 k g/m2 [facility] [place] body weight 172 [lb_av] 172 [lb_av] MEDEN T ([facility]) Body weight 86.864 kg 86.864 kg [facility] ([facility]) Body surface area Derived from formula 2.07 m2 2.07 m2 [facility] ([facility]) Body height 71 [in_i] 71 [in_i] [facility] 5'11" Systolic blood pressure 103 mm[Hg] 103 mm[Hg] M EDENT ([facility]) Diastolic blood pressure 73 mm[Hg] 73 mm[Hg] [facility] ([facility]) Heart rate 92 /min 92 /min [facility] ([facility]) Systolic blood pressure 110 mm[Hg] 110 mm[Hg] M EDENT ([facility]) Diastolic blood pressure 77 mm[Hg] 77 mm[Hg] [facility] ([facility]) Heart rate 88 /min 88 /min [facility] ([facility]) Body height 71 [in_i] 71 [in_i] [facility] ([facility]) 5'11" Body weight 148.50 [lb_av] 148.50 [lb_av] MEDEN T ([facility]) Body mass index (BMI) [Ratio] 20.7 kg/m2 20.7 k g/m2 [facility] ([facility]) [place] body weight 172 [lb_av] 172 [lb_av] MEDEN T ([facility], ) Body weight 67.360 kg 67.360 kg MEDENT ([facility], ) Body surface area Derived from formula 1.86 m2 1.86 m2 MEDENT ([facility], ) Body temperature 97.3 [degF] 97.3 [degF] MEDENT ([facility]) Body weight 153 [lb_av] 153 [lb_av] eCW1 ([facility]) Body temperature 97.8 [degF] 97.8 [degF] eCW1 ( [facility] To [facility]) Body height 71 [in_i] 71 [in_i] eCW1 ([facility]) Systolic blood pressure 136 mm[Hg] 136 mm[Hg] e CW1 ([facility]ending [facility] To [facility]) Diastolic blood pressure 80 mm[Hg] 80 mm[Hg] eCW1 ([facility]ending [facility] To [facility]) Body mass index (BMI) [Ratio] 21.34 kg/m2 21.34 kg/m2 eCW1 ([facility] To [facility]) Heart rate 113 /min 113 /min eCW1 ([facility]) Respiratory rate 18 /min 18 /min eCW1 ([facility]) Patient Treatment Plan of Care Planned Activity Planned Date Details Description Data Source (s) tizanidine 2 MG Oral Tablet 05/12/2021 12:00:00 AM EDT eCW1 ([facility]ending Sale To [facility]) 30 ACTUAT fluticasone furoate 0.1 MG/ACT UAT / vilanterol 0.025 MG/ACTUAT Dry Powder Inhaler [Breo] 05/12/2021 12:00:00 AM EDT eCW1 (Pending Sale To [facility]) Methocarbamol 500 MG Oral Tablet 01/23/2021 12:00:00 AM EDT eCW1 (Pending Sale To [facility]) duloxetine 30 MG Delayed Release Oral Capsule 01/23/2021 12:00:00 A M EDT eCW1 (Pending [facility] To [facility]) Methocarbamol 500 MG Oral Tablet 01/23/2021 12:00:00 AM EDT eCW1 (Pending Sale To [facility]) duloxetine 30 MG Delayed Release Oral Capsule 01/23/2021 12:00:00 A M EDT eCW1 (Pending Sale To [facility]) Escitalopram 5 MG Oral Tablet [Lexapro] 01/02/2021 12:00:00 AM EDT eCW1 (Pending Sale To [facility]) gabapentin 300 MG Oral Capsule 05/09/2020 12:00:00 AM EDT eCW1 (Pending Sale To [facility]) gabapentin 300 MG Oral Capsule 05/09/2020 12:00:00 AM EDT eCW1 (Pending [facility] To [facility])
[2021-06-05 04:23] LABS: ACETAMINOPHEN LEVEL < 2.0 UG/ML (10.0-30.0); BLOOD UREA NITROGEN 7 MG/DL (7-18); CALCIUM LEVEL 8.7 MG/DL (8.5-10.1); CARBON DIOXIDE LEVEL 29 MEQ/L (21-32); CHLORIDE LEVEL 110 MEQ/L (98-107); CREATININE FOR GFR 0.78 MG/DL (0.70-1.30); ETHYL ALCOHOL (ETHANOL) 0.317 % (0.000-0.010); GLOMERULAR FILTRATION RATE > 60.0 (>56); GLUCOSE, FASTING 103 MG/DL (70-100); POTASSIUM SERUM 3.7 MEQ/L (3.5-5.1); SODIUM LEVEL 147 MEQ/L (136-145)
== END 2021-06-05 03:45 | disposition left against medical advice (07) ==
LOC: M ED 01:55 → EDBD 01:55 → M ED 03:45
DX: S01.112A Laceration without foreign body of left eyelid and periocular area, initial encounter (principal); S02.831A Fracture of medial orbital wall, right side, initial encounter for closed fracture; Y04.0XXA Assault by unarmed brawl or fight, initial encounter; Y92.410 Unspecified street and highway as the place of occurrence of the external cause; Y93.89 Activity, other specified; Y99.8 Other external cause status; Z79.899 Other long term (current) drug therapy